=== PATIENT | male | born 1975 | race Caucasian/White ===

== ENCOUNTER → 2018-03-05 07:38 | Outpatient (CLI) | payer OTHER, SELFPAY ==
--- NOTE | 2018-03-05 | DI.RAD.S_ITS ---
PROCEDURE: FL ARTHROGRAM SHOULDER LT INDICATIONS: STRAIN OF MUSCLE AND TENDON OF THE ROTATOR CUFF LEFT SHOULDER TECHNIQUE: The indications, alternatives, benefits, risks, and complications of the procedure were explained to the patient. Written informed consent was obtained and placed in the chart. The shoulder was examined fluoroscopically and a site for needle placement chosen for entry into the glenohumeral joint from an anterior approach. The skin was prepped and draped in a sterile fashion, and 1% lidocaine infiltrated from skin down to joint capsule. A spinal needle was inserted into the glenohumeral joint, and a small amount of iodinated contrast media injected to confirm intra-articular placement of the needle tip. This was followed by approximately 12 mL dilute solution of a gadolinium containing MR contrast agent. The needle was removed and a dressing was applied. The patient was given postprocedural instructions and sent to the MR suite for MR imaging. FINDINGS: A single fluoroscopic spot image demonstrates intra-articular location of injected iodinated contrast. IMPRESSION: Successful fluoroscopically guided administration of dilute Gadolinium solution into the shoulder joint for MR arthrogram. Dictated by: Santiago De La Torre M.D. on 03/05/2018 at 10:10 Approved by: Santiago De La Torre M.D. on 03/05/2018 at 10:11
--- NOTE | 2018-03-05 | DI.MRI.S_ITS ---
PROCEDURE: MR SHOULDER LT W CON INDICATIONS: STRAIN OF MUSCLE AND TENDON OF THE ROTATOR CUFF LE TECHNIQUE: After the administration of 12 mL of dilute intra-articular Gadolinium contrast, oblique coronal T1 and T2 spin echo with fat saturation, oblique sagittal T1 spin echo with and without fat saturation, oblique sagittal T2 fast spin echo with fat saturation, axial T1 spin echo with fat saturation through the shoulder. COMPARISON: [facility], MR, SHOULDER WITH CONTRAST, 02/11/2017, 13:59. FINDINGS: Image quality: Diagnostic. Rotator cuff: There is no full-thickness or high-grade partial-thickness tear of the rotator cuff. There is low moderate grade articular surface partial thickness tearing of the distal supraspinatus tendon with associated tendinopathy. Infraspinatus, subscapularis, and teres minor tendons are intact. There is no significant atrophy of the rotator cuff muscles. Bones and bursae: There is no acute fracture, dislocation, suspicious osseous lesion, or evidence of avascular necrosis. There mild/early degenerative changes of the glenohumeral joint. There are mild/moderate degenerative changes of the acromial clavicular joint. There is adequate distention of the glenohumeral joint with the injected contrast. No definite loose intra-articular joint bodies are appreciated. None of the injected contrast extends into the subacromial subdeltoid bursa to suggest a nonvisualized full-thickness tear of the rotator cuff. No significant fluid is seen within the subacromial subdeltoid bursa. Capsule and soft tissues: There is a near circumferential tear of the labrum that extends from approximately the 3 o'clock position (posterior) to the 12 o'clock position (superior) and along the entire length of the anterior labrum to at least the 6 o'clock position. There may be extension of this tear into the posteroinferior aspect of the labrum to approximately the 5 o'clock position. No detached labral fragments are identified. The long head of the biceps tendon is normally positioned within the bicipital groove. There is increased signal identified involving the intra-articular portion of the proximal biceps tendon. No significant tearing is identified. The superior, middle, and inferior glenohumeral ligaments appear intact. IMPRESSION: 1. Low to moderate grade articular surface partial thickness tearing of the distal supraspinatus tendon with corresponding mild tendinopathy. 2. Moderate to large near circumferential tearing of the labrum. No detached labral fragments are evident. 3. Probable tendinopathy involving the intra-articular portion of the biceps tendon. 4. Mild to moderate degenerative changes of the glenohumeral and acromioclavicular joints. Dictated by: Ovidio Gleason M.D. on 03/05/2018 at 9:02 Approved by: Ovidio Gleason M.D. on 03/05/2018 at 9:10
== END ==
PROVIDERS: Family Provider Student in an Organized Health Care Education/Training Program; PCP Student in an Organized Health Care Education/Training Program; Visit Provider Student in an Organized Health Care Education/Training Program
DX: S46.012A Strain of muscle(s) and tendon(s) of the rotator cuff of left shoulder, initial encounter (principal); S43.492A Other sprain of left shoulder joint, initial encounter; M19.012 Primary osteoarthritis, left shoulder
CPT/HCPCS: 73040; 73222; 77002

== ENCOUNTER 2018-05-05 08:57 | Day surgery (SDC) | payer OTHER, SELFPAY ==
[2018-04-23 12:01] VITALS: BMI 32.1
[2018-05-05] VITALS (7 sets, daily range): BP systolic 115–131; BP diastolic 70–91; PULSE 66–91; RESP 8–20; TEMP 36.3–36.6; O2SAT 90–99; BMI 33.2
[2018-05-05] MEDS: LACTATED RINGERS 1,000 ML 42 ML IV ×2 (09:33→13:03)
--- NOTE | 2018-05-05 10:20 | PM.PREOP ---
Pre-operative Note Interval Note Pre-op Check: Yes History & Physical Reviewed by Physician and Yes Exam Performed Changes: No
[2018-05-05] MEDS: MIDAZOLAM 2 MG/2 ML VIAL IV (10:23)
--- NOTE | 2018-05-05 10:37 | SUR.PREOP ---
Block start time [1023] . Monitoring initiated and maintained throughout procedure. Oxygen and medications given per anesthesiologist instructions. Patient remained stable throughout procedure, no adverse reactions noted. Block end time 1029 [].
--- NOTE | 2018-05-05 10:38 | SUR.OPER ---
Lateral on padded OR bed with miranda bag positioner, head on pillow, gel axillary roll in place, bottom leg bent with gel pad under knee to foot, upper leg straight and supported with pillows. Operative arm secured in shoulder positioning suspension device. non-operative arm secured on padded arm board. Safety belt at hip, tape over blanket securing lower legs.
[2018-05-05] MEDS: CEFTRIAXONE 2 GM/50 ML FROZ.PIGGY IV (11:00)
[2018-05-05] MEDS: SODIUM CHLORIDE IRRIG SOLUTION 3,000 ML, EPINEPHrine 1 MG IRR ×2 (12:02→12:42)
--- NOTE | 2018-05-05 14:01 | P.PCN_ITS ---
Procedures Date/Time Date of procedure: 05/05/18 Time of procedure: 10:31 Nerve Block Time out performed: Yes Local anesthetic used: other (15mL 0.5 opivacaine, 5mL 2* idocaine) Location of anesthetic used: interscalene Amount of anesthesia used (mL): 20 Nerve blocks: brachial plexus (interscalene) Procedure successful: Yes Patient tolerated procedure: well Complications: none Additional comments: Brachial plexus nerve block for post operative pain management. Risks and benefits discussed, including bleeding, infection, intravascular injection, nerve damage, block failure. Standard ASA monitors, NC O2. Pt supine. Chloroprep site preparation, sterile technique. Brachial plexus identified with US guidance, traced from supraclavicular to interscalene. 1mL 2% lidocaine skin wheal. 22g x 50mm Pajunk advanced with in- plane US guidance to brachial plexus. Negative aspiration. LA injected with intermittent negative aspiration. Good LA spread noted on US. No pain, no paraesthesia. Pt tolerated procedure well. Vital signs stable.
[2018-05-05] MEDS: BUPIVACAINE 0.25% (PF) VIAL 30 ML INJ (14:04)
--- NOTE | 2018-05-05 14:41 | P.OP_ITS ---
Operative Date/Time/Diagnoses Date of procedure: 05/05/18 Time of procedure: 12:00 Pre-op diagnosis: Left rotator cuff tear Left biceps tendinitis Left acromioclavicular joint arthritis Post-op diagnosis: same Procedure & Clinicians Procedure: Left shoulder arthroscopic rotator cuff debridement Left shoulder subacromial decompression Left shoulder open biceps tenodesis Left shoulder open distal clavicle excision Same procedure as scheduled: Yes Indications: 43-year-old male with the above diagnoses. He failed a long course of non operative treatment and responded temporarily to injections in the AC joint in the subacromial space. He additionally had similar symptoms in the right shoulder and did very well after a similar procedure. The risks, benefits, alternatives were discussed. Risks include pain, bleeding, infection , damage to nearby structures, lack of symptom relief, need for further procedures Aminah pop eye deformity, progression of his rotator cuff tear, clavicle instability. He signed a written consent form Surgeon: Patricio Gayle Medical Device Assembler: Fernando Hart Click Yes if Unassisted: No Anesthesia Type: General and Local Operative Notes Findings: Diagnostic arthroscopy shows grade 1 laxity posteriorly but nothing inferior or anterior. Range of motion was full. There is popping in the AC joint with range of motion. Diagnostic arthroscopy: Grade 2 slap tear and injury to the biceps sling both medially and laterally. The biceps tendon was taken. Subscapularis was intact and mild fraying that was not structural. There was slight cracking throughout the periphery of the labrum but no unstable tears. There was a 25% articular sided tear of the leading edge of the supraspinatus this was debrided. Subacromial space showed bursitis that was resected. No haggle lesion. Humeral head and glenoid cartilage was intact. Closure Type: primary Implants & Drains: Arthrex fiber tack loaded with a single tape Estimated Blood Loss (mL): 25 Blood products transfused: none Procedure in detail: The patient was met in the hold area on the day of surgery. Operative site was signed. Consent was verified. He desired to proceed. He was brought to the operating room and surrendered anesthesia. Once general anesthesia been obtained was placed in lateral position with the left arm up. An axillary roll was placed. All bony prominences were well padded. The beanbag was used to hold this position. He was then secured with tape and strap. Examination under anesthesia was then performed. He was then prepped and draped in the standard fashion. He was placed in balanced suspension with 10 lb. A surgical time-out was held to confirm the patient procedure, identity , allergies, images, antibiotics. All were in agreement we proceeded. A standard diagnostic arthroscopy was performed utilizing a posterior and anterosuperior portal. The anterosuperior portal was placed under direct visualization. The findings of the diagnostic arthroscopy can be found above. I then took a straight biter and released the biceps tendon from the labral junction and debrided the stump with the shaver. I then went up to the rotator cuff and debrided back the unstable portions and measured the footprint that had lifted up being less than 5 mm. I then performed a debridement of the rotator interval to better assess the subscapularis insertion and found to be inserting very nicely. The medial sling excess tissue was also debrided. Satisfied with the work in the joint I then moved up into the subacromial space by placing a switching stick from the posterior portal out through the anterior portal site just under the acromion. I then placed a cannula anteriorly with a sucker shaver and the camera posteriorly. I then sequentially performed a bursectomy with a sucker shaver and the radiofrequency ablator ablation Wand. I took care to take the bursa down the lateral and anterior. Hemostasis was obtained with electrocautery. Identified the underside of the acromion and removed all scar tissue from that location. I probed the rotator cuff and found there to be no tears on the bursal side. Satisfied with this and removed all instruments from the shoulder. I then identified the Monreal major tendon near the axilla and created a 4 cm incision. Blunt dissection was carried down and the correct interval and isolated the long head of biceps tendon. It was then retrieved from the wound. A Diaz elevator was then used to the abrade the intertubercular groove bone and freed from all synovial tissue. Satisfied with this I placed a suture tack high within the groove centrally. I measured 2 cm from the musculotendinous junction and took 1 limb and brought it to the capsular and whipstitched from that point down to the muscle and then back up. I then took the other limb and passed at a single time through the tendon. Excess tendon was then cut and I reduced the tendon down to the bone. I then tied the 7 half hitches alternating post to secure the tendon. It was found to have excellent tension in a good position. I then proceeded to distal clavicle excision utilized a longitudinal 4 cm incision. Electrocautery was used to obtain hemostasis and brought that down to the fascial layer. I cleared full-thickness skin flaps and then made a longitudinal capsular incision directly over the joint. I freed the joint capsule from the bony attachments and placed a Hohmann anterior and posterior to the distal clavicle. I then measured 1 cm total resection and took it parallel to the acromion. I then placed my finger in the gap and I was able to fully bring the arm across the body without impacting the bony ends together. Satisfied with this I irrigated all wounds copiously and closed in layered fashion. The capsule was closed with 0 Vicryl the dermis with 2 O Vicryl and the skin with a 3 0 nylon for the distal clavicle excision. For the biceps tendon I placed 2 0 Vicryl in the dermis and a running Monocryl in the skin. The portals were closed with buried Monocryl. I then placed Steri-Strips and put in 30 cc of 0.25% Marcaine plain around the incisions. A sterile dressing was then applied. He was awakened and put into a sling and transferred to recovery room. Complications: none Condition: stable Disposition: same day surgery Plan for aftercare: No active flexion of the biceps for 6 weeks No weight-bearing through the shoulder for 6 weeks Progressive biceps rehab after 6 weeks X-ray of left shoulder at 2 week follow-up
--- NOTE | 2018-05-05 15:31 | SUR.PHASEII ---
o2 sat 90-92%RA, patient encouraged to use CPAP today while resting, pt and spouse agreeable. Pt ambulated to the bathroom, sba. Assisted in bathroom by spouse.
--- NOTE | 2018-05-05 15:32 | SUR.PHASEII ---
Sling/brace positioned for comfort
== END 2018-05-05 15:20 | disposition home or self-care (01) ==
PROVIDERS: Family Provider Student in an Organized Health Care Education/Training Program; PCP Student in an Organized Health Care Education/Training Program; Visit Provider Orthopaedic Surgery
PROC: (CPT 29827; principal; 2018-05-05 10:15)
PROC: (CPT 24341; 2018-05-05 10:15)
PROC: (CPT 23120; 2018-05-05 10:15)
DX: M75.100 Unspecified rotator cuff tear or rupture of unspecified shoulder, not specified as traumatic (principal); M75.22 Bicipital tendinitis, left shoulder; S43.432A Superior glenoid labrum lesion of left shoulder, initial encounter; M19.012 Primary osteoarthritis, left shoulder; G47.33 Obstructive sleep apnea (adult) (pediatric); G89.18 Other acute postprocedural pain
CPT/HCPCS: 23430; 23120; 29826; 29822; 64415; 64450; J0171; J0696; J1100; J2250; J2405; J2704; J3010

== ENCOUNTER 2019-08-23 01:47 | Emergency (ER) | payer OTHER, SELFPAY ==
[2019-08-23 01:50] VITALS: BP 141/91; PULSE 58; RESP 16; TEMP 36.7; O2SAT 99; BMI 37.3
--- NOTE | 2019-08-23 04:27 | ED_ITS ---
HPI - Dental/Oral General Chief complaint: Dental/Oral Stated complaint: can't open jaw wide, pain left side Time Seen by Provider: 08/23/19 04:27 Source: patient Mode of arrival: Ambulatory Limitations: no limitations History of Present Illness HPI Narrative: The patient has bilateral TMJ. He developed locked jaw earlier tonight, been unable to close his mouth be on detention. He was talking. This is never happened before he has primary left TMJ pain. He has no dental pain. He has no facial swelling. He is having no difficulty breathing. He has had no trauma. Related Data Home Medications Medication Instructions Recorded Confirmed No Known Home Medications 05/05/18 05/05/18 Allergies Allergy/AdvReac Type Severity Reaction Status Date / Time No Known Drug Allergies Allergy Verified 05/05/18 09:23 Review of Systems Review of Systems ROS Unobtainable: All systems reviewed & are unremarkable except as noted in HPI and below ENT Ears, Nose, Mouth, and Throat: Reports as per HPI, Denies lip swelling, Denies mouth lesions and Reports mouth pain Allergic/Immunologic Allergic/Immunologic: Denies lip swelling Patient History Medical History Arthritis (Acute) Biceps tendonitis on left (Acute) Bilateral shoulder pain (Acute) Impaired vision (Acute) Left rotator cuff tear (Acute) Plantar fasciitis (Acute) Right knee pain (Acute) Sleep apnea (Acute) Surgical History History of shoulder surgery (Acute) Social History household members: spouse and children Smoking Status: Former smoker alcohol intake: never Smoking Status: Former smoker Exam Initial Vital Signs Initial Vital Signs: Vital Signs Temperature 98.0 F 08/23/19 01:50 Pulse Rate 58 L 08/23/19 01:50 Respiratory Rate 16 08/23/19 01:50 Blood Pressure 141/91 H 08/23/19 01:50 Pulse Oximetry 99 08/23/19 01:50 Const General: cooperative and well developed Nutritional Appearance: well nourished [facility] Head: normal to inspection, normocephalic and atraumatic Nose: TMJ tender (Bilateral) and TMJ clicking (Bilateral) Face and sinus: normal facial exam and sinuses nontender Mouth: oral mucosae normal and lip normal Teeth and gingiva: dentition normal Throat: posterior oropharynx normal Neck Neck: full ROM, supple and No lymphadenopathy Course Course Course Narrative: The patient was able to reduce the TMJ dislocation himself, prior to my arrival in the room. I examined him, he has significant tenderness and laxity over both TMJ points. I suggested he follow-up with his dentist. Vital Signs Vital signs: Vital Signs - 8 hr 08/23/19 01:50 Temperature 98.0 F Pulse Rate 58 L Respiratory Rate 16 Blood Pressure 141/91 H Pulse Oximetry 99 Discharge Plan Departure Patient Disposition: Home Clinical Impression: TMJ (dislocation of temporomandibular joint) Qualifiers: Encounter type: initial encounter Qualified Code(s): S03.00XA - Dislocation of jaw, unspecified side, initial encounter Activity Restrictions/Additional Instructions: If you experience locked dog and, consider doing the motions that I demonstrated. You should also consider following up with your dentist for management of the TMJ. Return the ER as needed. Prescriptions: No Action No Known Home Medications RF: 0 Referrals: Marilee De La Torre MD [Primary Care Provider] -
== END 2019-08-23 04:31 | disposition home or self-care (01) ==
PROVIDERS: Emergency Provider Emergency Medicine; Family Provider Student in an Organized Health Care Education/Training Program; PCP Student in an Organized Health Care Education/Training Program
DX: S03.03XA Dislocation of jaw, bilateral, initial encounter (principal)
CPT/HCPCS: 99281

== ENCOUNTER → 2020-04-10 15:07 | Outpatient (CLI) | payer OTHER, SELFPAY ==
[2020-04-10 16:48] LABS: Alanine Aminotransferase 45 IU/L (<50); Albumin 4.3 g/dL (3.5-5.0); Albumin Globulin Ratio 1.2 (1.0-2.8); Alkaline Phosphatase 69 U/L (38-126); Aspartate Aminotransferase 31 IU/L (17-59); Cholesterol 202 mg/dL (140-199); Globulin 3.6 g/dL (1.7-4.1); HDL Cholesterol 41 mg/dL (40-60); HEMOLYSIS < 15 (0-50); LDL Cholesterol Calculated 130 mg/dL (<100); Total Protein 7.9 g/dL (6.3-8.2); Triglycerides 153 mg/dL (35-150)
[2020-04-10 16:50] LABS: Hemoglobin A1C% w Est Avg Glu 5.7 % (4.0-6.0)
== END ==
PROVIDERS: Family Provider Student in an Organized Health Care Education/Training Program; PCP Student in an Organized Health Care Education/Training Program; Referring Provider Student in an Organized Health Care Education/Training Program; Visit Provider Student in an Organized Health Care Education/Training Program
DX: E78.5 Hyperlipidemia, unspecified (principal); Z79.899 Other long term (current) drug therapy; E66.9 Obesity, unspecified; R73.9 Hyperglycemia, unspecified
CPT/HCPCS: 36415; 80061; 80076; 83036

== ENCOUNTER 2021-03-27 08:39 | Emergency (ER) | payer OTHER, SELFPAY ==
[2021-03-27 08:46] VITALS: BP 144/84; PULSE 66; RESP 18; TEMP 37.1; O2SAT 98; BMI 43.0
--- NOTE | 2021-03-27 09:20 | ED.NEUROSD ---
HPI - Neuro Symptoms/Deficit General Chief Complaint: Neuro Symptoms/Deficit Stated Complaint: Left side of face drooping this am Time Seen by Provider: 03/27/21 08:44 History of Present Illness HPI Narrative: 46-year-old gentleman with a history of hyperlipidemia, depression and anxiety presents with right facial droop that he noticed upon awakening this morning. Has no other stroke associated symptoms, no headache no extremity weakness or numbness. He has noticed that his eye is slightly dry and he had some trouble dribbling from the right side of his mouth fall he was drinking his coffee this morning. Reports no recent fevers, cough, chills, abdominal pain, vomiting, nausea, palpitations, chest pain. On Anticoagulants: No Related Data Previous Rx's Medication Instructions Recorded atorvastatin 40 mg tablet 40 mg PO DAILY #90 tab 05/04/20 prednisone 20 mg tablet 60 mg PO DAILY #21 tab 03/27/21 valacyclovir 1 gram tablet 1,000 mg PO Q8H #21 tab 03/27/21 Allergies Allergy/AdvReac Type Severity Reaction Status Date / Time No Known Drug Allergies Allergy Verified 04/10/20 14:35 Review of Systems Review of Systems Narrative: Remainder of complete review of systems is otherwise unremarkable except for that included in the HPI. Hematologic/Lymphatic On Anticoagulants: No Patient History Medical History Arthritis Olvera's palsy Biceps tendonitis on left Bilateral shoulder pain Impaired vision Left rotator cuff tear Plantar fasciitis Right knee pain Sleep apnea Surgical History History of shoulder surgery Social History household members: spouse and children Smoking Status: Former smoker alcohol intake: never Smoking Status: Former smoker Exam Narrative Exam Narrative: General: Healthy appearing, in no acute distress. Able to give a complete and coherent history. Well-nourished well-developed HEENT: Moist mucous membranes, normal sclera with reactive pupils, Respiratory: Lungs are clear to auscultation, no wheezing no rales no rhonchi. Full and symmetrical air movement Cardiac: Regular rate and rhythm no murmurs no bruits Abdomen: Soft, nontender, good bowel tones, no flank pain Skin: Warm and dry, no rashes Neurologic: Right-sided facial weakness with difficulty completely closing the right eyelid, flattened nasal labial fold. No sensory abnormalities. Otherwise he is neurologically intact without any peripheral involvement. 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 He went to bed fine last night and today noticed facial weakness. No other neurologic involvement to suggest stroke. Will treat him with 7 days of prednisone at 60 mg as well as 7 days of valacyclovir 1 g 3 times a day. Reviewed with him anticipated course of disease and possible complications. I asked that he follow-up with his primary care physician in about a week. 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 This is not a stroke For this, the recommendation is high doses of steroids for 1 week. And antiviral medication 3 times a day for 1 week Use of artificial tears in your right eye and you may even need to use some light tape to hold your eyelid closed wall your sleeping at night This has a very good prognosis with expected complete recovery however recovery can take up to a couple of months. Because you of come in so early in the course of the disease, you may notice the symptoms worsen over the next 1-2 days. Please follow-up with Dr. York in about a week to make sure that all of your questions are answered and that you are doing well. I wish you the best Prescriptions: New prednisone 20 mg tablet 60 mg PO DAILY Qty: 21 RF: 0 valacyclovir 1 gram tablet 1,000 mg PO Q8H Qty: 21 RF: 0 No Action atorvastatin 40 mg tablet 40 mg PO DAILY Qty: 90 RF: 3 Referrals: Lokesh Vasquez MD [Primary Care Provider] -
== END 2021-03-27 09:29 | disposition home or self-care (01) ==
PROVIDERS: Emergency Provider Emergency Medicine; Family Provider Student in an Organized Health Care Education/Training Program; PCP Student in an Organized Health Care Education/Training Program
DX: G51.0 Bell's palsy (principal)
CPT/HCPCS: 99281

== ENCOUNTER → 2021-09-05 14:41 | Outpatient (CLI) | payer OTHER, SELFPAY ==
[2021-09-05 17:27] LABS: Hemoglobin A1C% w Est Avg Glu 5.7 % (4.0-6.0)
[2021-09-05 17:58] LABS: Prostate Specific Antigen Scrn 1.29 ng/mL (0.1-4.0)
== END ==
PROVIDERS: Family Provider Student in an Organized Health Care Education/Training Program; PCP Student in an Organized Health Care Education/Training Program; Referring Provider Student in an Organized Health Care Education/Training Program; Visit Provider Student in an Organized Health Care Education/Training Program
DX: E66.9 Obesity, unspecified (principal); R73.9 Hyperglycemia, unspecified; Z12.5 Encounter for screening for malignant neoplasm of prostate; Z80.42 Family history of malignant neoplasm of prostate
CPT/HCPCS: 36415; 83036; G0103

== ENCOUNTER → 2021-12-05 13:14 | Outpatient (CLI) | payer OTHER, SELFPAY ==
--- NOTE | 2021-12-05 13:16 | DI.CT.S_ITS ---
PROCEDURE: CT ABDOMEN PELVIS WO CON INDICATIONS: Right lower quadrant pain TECHNIQUE: Noncontrast 5 mm thick sections acquired from the diaphragms to the symphysis. 5 mm coronal and sagittal reformats were then performed. For radiation dose reduction, the following was used: automated exposure control, adjustment of mA and/or kV according to patient size. COMPARISON: None. FINDINGS: Image quality: Excellent. ABDOMEN: Lung bases: Lung bases are clear. Heart size is normal. Solid organs: Liver is normal in size. Gallbladder is normal . Pancreas is normal in contours. Spleen is normal in size. No adrenal nodules. Kidneys are normal in size, without hydronephrosis or nephrolithiasis. There is a calcification in the right renal hilum, probably a vascular calcification. Peritoneum and bowel: Unenhanced bowel loops demonstrate normal wall thickness and caliber. No free fluid or air. The appendix is not visualized, however there is no CT evidence of acute appendicitis. Nodes and vessels: No retroperitoneal or mesenteric adenopathy by size criteria. Aorta and inferior vena cava are normal in caliber. Miscellaneous: No ventral hernias. PELVIS: Genitourinary: Bladder wall thickness is normal. Miscellaneous: No inguinal hernias or adenopathy. Bones: No suspicious bony lesions. No vertebral body compression fractures. IMPRESSION: 1. No acute abdominal or pelvic abnormality. 2. The appendix is not identified, however there is no CT evidence of acute appendicitis. Dictated by: Aayush Huerta M.D. on 12/05/2021 at 15:10 Approved by: Aayush Huerta M.D. on 12/05/2021 at 15:16
== END ==
PROVIDERS: Family Provider Student in an Organized Health Care Education/Training Program; PCP Student in an Organized Health Care Education/Training Program; Referring Provider Student in an Organized Health Care Education/Training Program; Visit Provider Student in an Organized Health Care Education/Training Program
DX: N50.82 Scrotal pain (principal); R10.31 Right lower quadrant pain
CPT/HCPCS: 74176

== ENCOUNTER → 2022-01-13 12:42 | Outpatient (CLI) | payer OTHER, SELFPAY ==
[2022-01-13 14:08] LABS: COVID19 -Nasal RAPID Negative (Negative)
== END ==
PROVIDERS: Family Provider Student in an Organized Health Care Education/Training Program; PCP Student in an Organized Health Care Education/Training Program; Visit Provider Surgery
DX: Z20.822 Contact with and (suspected) exposure to COVID-19 (principal); Z01.812 Encounter for preprocedural laboratory examination
CPT/HCPCS: 87635; C9803

== ENCOUNTER 2022-01-14 09:41 | Day surgery (SDC) | payer OTHER, SELFPAY ==
[2022-01-14] VITALS (7 sets, daily range): BP systolic 135–175; BP diastolic 77–103; PULSE 76–90; RESP 13–25; TEMP 36.2–37.1; O2SAT 91–96; BMI 41.8
--- NOTE | 2022-01-14 | PATH_ITS ---
[facility] Accession Number: [id number] . 01 Material submitted: . colon - SIGMOID COLON POLYP . 01 Diagnosis: Sigmoid Colon, Polyp, Biopsy: Hyperplastic polyp. [facility] [place] 01/17/2022 1333 Local . 01 Electronically signed: . Kaitlin Thacker MD, Pathologist NPI- [id number] . 01 Gross description: . SIGMOID COLON POLYP: Received in formalin is 1 fragment(s) of mora, soft tissue measuring 0.2 x 0.2 x 0.2 cm submitted entirely in 1 cassette(s) /[facility] 01/15/2022 2229 Local . 01 Pathologist provided ICD-10: D12.5 . 01 CPT . 884183 Performed at: 01 [facility] [address] [place] [address] [id number] MD Pedro Serrato MD Phone: [phone]
[2022-01-14] MEDS: LACTATED RINGERS 1,000 ML 200 ML IV (10:06)
--- NOTE | 2022-01-14 10:52 | PM.HP.1 ---
History of Present Illness History of Present Illness Date Patient Seen: 01/14/22 Time Patient Seen: 10:52 Chief complaint: SDC Narrative: The patient presents for colorectal screening. They have never had any previous examination for such. He has recently been having some right lower quadrant/flank pain CT abdomen pelvis was unremarkable. No blood per rectum no unintentional loss. Family history significant for father who had colon cancer. Patient History Medical History Arthritis Biceps tendonitis on left Bilateral shoulder pain Impaired vision Left rotator cuff tear Plantar fasciitis Right knee pain Sleep apnea Surgical History History of shoulder surgery Family & Social History Social History: household members spouse,children Tobacco & Substance use: Smoking Status Former smoker alcohol intake never Substance Use Type does not use Meds Home Medications and Allergies Home Medications Medication Instructions Recorded Confirmed Type atorvastatin 40 mg tablet 40 mg PO DAILY #90 tabs 05/04/20 01/14/22 Rx paroxetine HCl 40 mg tablet 40 mg PO DAILY 04/03/21 01/14/22 History sodium,potassium,mag sulfates 17.5 See Rx Instructions PO .COMPLEX 12/30/21 Rx gram-3.13 gram-1.6 gram oral soln #354 mL (Suprep Bowel Prep Kit) Allergies Allergy/AdvReac Type Severity Reaction Status Date / Time No Known Drug Allergies Allergy Verified 01/14/22 10:01 Exam Vital Signs (past 8 hours): - 01/14/22 09:56 Temperature 97.3 F L Pulse Rate 76 Respiratory Rate 15 Blood Pressure 153/83 H Pulse Oximetry 96 Oxygen Delivery Method Room Air Oxygen Delivery Method Room Air Narrative Exam Narrative: General adult male alert oriented no acute distress Abdomen soft nontender nondistended Assessment & Plan Assessment & Plan narrative: The patient requires colorectal screening and colonoscopy is recommended. Technical details were discussed. Risks, benefits, alternatives explained. Risks including but not limited to myocardial infarction, aspiration, bleeding, pain, missed lesion, incomplete examination, need for further radiographic studies, colonic perforation, and need for major abdominal surgery were discussed. All questions were answered to their satisfaction, and they are in agreement with this plan. Time Spent With Patient Critical Care time: I spent a total of [] minutes of critical care time on this patient's care today; this time is exclusive of procedural time.
--- NOTE | 2022-01-14 11:10 | SUR.OPER ---
9 mg of Versed and 100 Fentanyl given per protocol. Patient wide awake, alert and reports no response to medications. IV to right forearm tight flush without blood return. Upon further investigation patient reports discomfrot to site. New IV to right AC initated by this RN with good blood return and easy flush. IVF infusing without difficulty. Patient give a new dose of 5 mg versed and 100 fentanyl with almost immediate effect. Dr. Pruitt aware and at bedside.
[2022-01-14] MEDS: fentaNYL 250 MCG/5 ML INJ IV (11:16)
[2022-01-14] MEDS: MIDAZOLAM 5 MG/5 ML VIAL 16 MG IV (11:16)
--- NOTE | 2022-01-14 11:24 | PM.OP.COLON ---
Operative Date/Time/Diagnoses Date of procedure: 01/14/22 Time of procedure: 11:24 Pre-op diagnosis: Family history of colon cancer Post-op diagnosis: same Procedure & Clinicians Study performed: Colonoscopy and polypectomy Same procedure as scheduled: Yes Indications: Family history of colon cancer Surgeon: Joni Pruitt Procedure Notes Procedure in detail: Medications: Conscious sedation using 7 mg IV midazolam and 150 mcg IV of fentanyl The history and physical was performed/updated and the patient is ASA class is 2. The procedure was discussed in detail with the patient. Potential risks complications including infection, bleeding, missed diagnosis, perforation, need for surgery, and were explained. Their questions were answered and informed consent was obtained. Patient was brought to the procedure room and placed standard monitoring equipment. The patient's vital signs were monitored continuously throughout the entire procedure. Prior to starting time-out was performed. The patient was placed in the left lateral recumbent position. Procedural sedation was administered. Examination began with a thorough inspection of the perianal area there was no evidence of fissures, fistulae, external hemorrhoids or cutaneous malignancy. The colonoscopy scope was then placed into the anal canal and was advanced to the cecum, which was identified by the ileocecal valve, the appendiceal orifice and the confluence of the taenia. The scope was then slowly withdrawn examining colon thoroughly in all directions, irrigating it of any residual stool. FINDINGS 1. Sigmoid colon-flat 5 mm polyp removed with Jumbo forceps 2. Internal hemorrhoids The patient tolerated the procedure well. They will be discharged once criteria are met. The prep was of good/excellent quality. The withdrawl time was 6 minutes. The sedation time was 13 minutes. Specimen(s): other (Sigmoid colon polyp) Complications: none Impression: Colonic polyp Post-procedure Recommendations: Colonoscopy in 5 years Disposition: same day surgery
--- NOTE | 2022-01-14 12:02 | SUR.PHASEII ---
During procedure, Pt recieved 9 mg Versed and 150 mcg fentanyl without effect, IV site assumed to be infiltrated. Second IV placed 9 mg Versed and 100 MCG fentanyl administered. RN wary of delayed effect of initial dosage. Pharmacy contacted, recommends keeping patient for 2 hours.
== END 2022-01-14 13:33 | disposition home or self-care (01) ==
PROVIDERS: Family Provider Student in an Organized Health Care Education/Training Program; PCP Student in an Organized Health Care Education/Training Program; Referring Provider Surgery; Visit Provider Surgery
PROC: 0DJD8ZZ Inspection of Lower Intestinal Tract, Via Natural or Artificial Opening Endoscopic (ICD-10-PCS; CPT 45378; principal; 2022-01-14 10:30)
DX: Z12.11 Encounter for screening for malignant neoplasm of colon (principal); Z80.0 Family history of malignant neoplasm of digestive organs; K64.8 Other hemorrhoids; K63.5 Polyp of colon
CPT/HCPCS: 45380; 99152; J2250; J3010

== ENCOUNTER 2022-08-06 12:29 | Emergency (ER) | payer OTHER, SELFPAY ==
[2022-08-06 12:46] VITALS: BP 156/88; PULSE 72; RESP 16; TEMP 36.4; O2SAT 99; BMI 29.1
--- NOTE | 2022-08-06 13:08 | DI.US.S_ITS ---
PROCEDURE: US ABDOMEN LIMITED INDICATIONS: RIGHT UPPER QUADRANT PAIN TECHNIQUE: Real-time focused scanning was performed of the abdomen, with image documentation. COMPARISON: [facility], CT, CT ABDOMEN PELVIS WO CON, 12/05/2021, 13:18. FINDINGS: This study is limited by body habitus and bowel gas. The liver demonstrates normal size. The liver demonstrates generalized moderately increased echogenicity. The liver demonstrates a mildly heterogeneous appearance. This decreases ultrasound sensitivity for detection of hepatic masses. Likely fatty sparing can be seen adjacent to the gallbladder that measures a 3.4 cm. The main portal vein demonstrates normal size and demonstrates normal appearing, hepatopetal flow. No findings of gallstones or sludge are seen. The gallbladder wall is not thickened, measuring 3 mm or less. No specific pericholecystic fluid is seen. The sonographic Blanc sign is negative. There is no biliary dilatation, the common bile duct measures 4-5 mm. The pancreas is not well seen. The right kidney demonstrates normal size. The proximal ureter is dilated at 1.5 cm. There is a 1 cm stone seen within the proximal ureter. There is mild pelviectasis seen on the right. IMPRESSION: 1 cm stone seen within the proximal right ureter. Please consider a follow-up noncontrast CT for further evaluation. The liver demonstrates increased echogenicity. This finding is nonspecific, yet it is most commonly attributed to fatty infiltration. The gallbladder demonstrates a normal sonographic appearance. No biliary dilatation is seen. Note: Concordant preliminary findings given by the hearing dog trainer upon the completion of the examination to Brigida Juliana at 1:40 p.m. on August 06, 2022. Dictated by: Garcia Darby M.D. on 08/06/2022 at 12:54 Approved by: Garcia Darby M.D. on 08/06/2022 at 12:56
--- NOTE | 2022-08-06 13:15 | ED_ITS ---
HPI - Abdominal Pain <NANCY Philip - Last Filed: 08/06/22 15:15> General Chief Complaint: Abdominal Pain Stated Complaint: Back pain, Poss gallbladder problems Time Seen by Provider: 08/06/22 13:08 Source: patient Mode of arrival: Ambulatory History of Present Illness HPI narrative: This is a 47-year-old male with history of ANABELLA, obesity and hyperlipidemia who presents to the emergency department with concerns for gallbladder problems. He has had right upper quadrant pain and right flank pain intermittently over the last year and states that most recently it has worsened with episode of emesis this morning, nausea and emesis recently. He denies recent fever, chills, diaphoresis, chest pain, or radiation to his back. His primary care provider is Dr. York and he has talked about this in the past with him. States that his pain was worse today so he he was concerned it was more serious this time. He denies recent illness, denies any urinary changes, denies any stool changes or other abdominal pain. Denies any blood in his emesis. Related Data Home Medications Medication Instructions Recorded Confirmed paroxetine HCl 40 mg tablet 40 mg PO DAILY 04/03/21 08/04/22 Previous Rx's Medication Instructions Recorded atorvastatin 40 mg tablet 40 mg PO DAILY #90 tabs 05/04/20 hydrocodone 5 mg-acetaminophen 325 1 tab PO TID PRN pain #14 tabs 08/06/22 mg tablet ketorolac 10 mg tablet 10 mg PO Q8H PRN pain #20 tabs 08/06/22 ondansetron 4 mg disintegrating 4 mg PO Q8H PRN nausea and 08/06/22 tablet vomiting #14 tabs polyethylene glycol 3350 17 17 g PO DAILY PRN constipation, 08/06/22 gram/dose oral powder (Miralax) for soft stool #238 grams Allergies Allergy/AdvReac Type Severity Reaction Status Date / Time No Known Drug Allergies Allergy Verified 08/06/22 12:46 Review of Systems <NANCY Philip - Last Filed: 08/06/22 15:15> Review of Systems ROS Unobtainable: All systems reviewed & are unremarkable except as noted in HPI and below Patient History <NANCY Philip - Last Filed: 08/06/22 15:15> Medical History Arthritis Biceps tendonitis on left Bilateral shoulder pain Impaired vision Left rotator cuff tear Plantar fasciitis Right knee pain Sleep apnea Surgical History History of shoulder surgery Social History household members: spouse and children Smoking Status: Former smoker alcohol intake: never Smoking Status: Former smoker Substance Use Type: does not use Exam <NANCY Philip - Last Filed: 08/06/22 15:15> Narrative Exam Narrative: Reviewed vitals signs and nursing notes. General: cooperative, comfortable, in no acute distress, well groomed HEENT: symmetrical facial expressions, moist mucous membranes Cardiovascular: regular rate and rhythm, no peripheral edema, warm extremities Respiratory: normal effort, able to speak in complete sentences, without wheezing, stridor, or abnormal breath sounds. No retractions or tachypnea. GI: abdomen soft, nondistended, without masses, rebound tenderness, positive Blanc sign, exquisite tenderness with right upper quadrant palpation during deep inspiration, patient does have lateral rt lower rib tenderness and right- sided CVA tenderness MSK: moves all extremities, neurovascularly intact, no weakness, normal tone Skin: brisk capillary refill, without pallor or erythema Neuro: normal speech and cognition, A&O x3, ambulatory, clear speech Psych: mental status is grossly normal, congruent mood, normal affect, pleasant and cooperative Initial Vital Signs Initial Vital Signs: Vital Signs Temperature 97.5 F L 08/06/22 12:46 Pulse Rate 72 08/06/22 12:46 Respiratory Rate 16 08/06/22 12:46 Blood Pressure 156/88 H 08/06/22 12:46 Pulse Oximetry 99 08/06/22 12:46 Oxygen Delivery Method 08/06/22 12:46 <Melisa Dominguez DO - Last Filed: 08/07/22 08:00> Initial Vital Signs Initial Vital Signs: Vital Signs Temperature 97.5 F L 08/06/22 12:46 Pulse Rate 72 08/06/22 12:46 Respiratory Rate 16 08/06/22 12:46 Blood Pressure 156/88 H 08/06/22 12:46 Pulse Oximetry 99 08/06/22 12:46 Oxygen Delivery Method 08/06/22 12:46 Course <NANCY Philip - Last Filed: 08/06/22 15:15> Orders Ordered: Discontinued Medications Hydrocodone Bitart/Acetaminophen (Hydrocodone/Acet 5/325 Tablet) 1 tab PO NOW ONE Stop: 08/06/22 14:46 Last Admin: 08/06/22 15:08 Dose: 1 tab Documented By: RAMY Hydromorphone HCl (Hydromorphone 0.5 Mg Inj) 0.5 mg IV NOW ONE Stop: 08/06/22 13:09 Last Admin: 08/06/22 13:25 Dose: 0.5 mg Documented By: GEORGE Ketorolac Tromethamine (Ketorolac 30 Mg/Ml Vial) 15 mg IV NOW ONE Stop: 08/06/22 13:15 Last Admin: 08/06/22 13:25 Dose: 15 mg Documented By: GEORGE Ondansetron HCl (Ondansetron 4 Mg/2 Ml Inj) 4 mg IV NOW PRN PRN Reason: Nausea And Vomiting Last Admin: 08/06/22 13:25 Dose: 4 mg Documented By: GEORGE Vital Signs Vital signs: Vital Signs - 8 hr 08/06/22 12:46 Temperature 97.5 F L Pulse Rate 72 Respiratory Rate 16 Blood Pressure 156/88 H Pulse Oximetry 99 Oxygen Delivery Method Room Air <Melisa Dominguez DO - Last Filed: 08/07/22 08:00> Orders Ordered: Discontinued Medications Hydrocodone Bitart/Acetaminophen (Hydrocodone/Acet 5/325 Tablet) 1 tab PO NOW ONE Stop: 08/06/22 14:46 Last Admin: 08/06/22 15:08 Dose: 1 tab Documented By: RAMY Hydromorphone HCl (Hydromorphone 0.5 Mg Inj) 0.5 mg IV NOW ONE Stop: 08/06/22 13:09 Last Admin: 08/06/22 13:25 Dose: 0.5 mg Documented By: GEORGE Ketorolac Tromethamine (Ketorolac 30 Mg/Ml Vial) 15 mg IV NOW ONE Stop: 08/06/22 13:15 Last Admin: 08/06/22 13:25 Dose: 15 mg Documented By: GOERGE Ondansetron HCl (Ondansetron 4 Mg/2 Ml Inj) 4 mg IV NOW PRN PRN Reason: Nausea And Vomiting Last Admin: 08/06/22 13:25 Dose: 4 mg Documented By: GEORGE Vital Signs Vital signs: Vital Signs - 8 hr 08/06/22 12:46 Temperature 97.5 F L Pulse Rate 72 Respiratory Rate 16 Blood Pressure 156/88 H Pulse Oximetry 99 Oxygen Delivery Method Room Air MDM - Abdominal Pain <NANCY Philip - Last Filed: 08/06/22 15:15> Lab Data Result diagrams: 08/06/22 13:10 08/06/22 13:10 Labs: Lab Results 08/06/22 08/06/22 08/06/22 Range/Units 12:57 13:10 13:10 WBC 11.0 (4.5-11.0) X10^3/uL RBC 5.10 (4.5-5.9) X10^6/uL Hgb 14.8 (13.5-17.5) g/dL Hct 43.1 (41-53) % MCV 84.5 (80-100) fL MCH 29.0 (26-34) PG MCHC 34.3 (30-36) % RDW 13.3 (11.6-14.8) % Plt Count 324 (150-400) X10^3/uL Neut % (Auto) 68.8 (50-75) % Lymph % (Auto) 22.1 L (25-40) % [place] % (Auto) 7.2 (3-14) % Eos % (Auto) 1.4 L (2-4) % Baso % (Auto) 0.5 (0-2) % Neut # (Auto) 7500 H (6132-5091) /uL Lymph # (Auto) 2400 (4095-7432) /uL [place] # (Auto) 800 (0-900) /uL Eos # (Auto) 200 (0-450) /uL Baso # (Auto) 100 (0-100) /uL Sodium 136 L (137-145) mmol/L Potassium 4.1 (3.4-5.1) mmol/L Chloride 101 (98-107) mmol/L Carbon Dioxide 26 (22-32) mmol/L BUN 10 (9-20) mg/dL Creatinine 0.85 (0.66-1.25) mg/dL Estimated GFR > 60 (>60) mL/min BUN/Creatinine Ratio 11.8 (6-22) Glucose 99 (70-100) mg/dL Calcium 9.0 (8.4-10.2) mg/dL Total Bilirubin 1.0 (0.2-1.3) mg/dL AST 30 (17-59) IU/L ALT 48 (<50) IU/L Alkaline Phosphatase 79 (38-126) U/L C-Reactive Protein (<1.0) mg/dL Total Protein 7.9 (6.3-8.2) g/dL Lipase 78 (23-300) U/L Procalcitonin (<0.5) ng/mL Urine RBC 10-30/hpf H (0-5/HPF) Urine WBC 1-5/hpf (0-5/HPF) Urine Bacteria None seen (None) Urine Yeast 10-30/hpf H (None) Ur Culture Indicated? Cult not indicated 08/06/22 08/06/22 Range/Units 13:10 13:10 WBC (4.5-11.0) X10^3/uL RBC (4.5-5.9) X10^6/uL Hgb (13.5-17.5) g/dL Hct (41-53) % MCV (80-100) fL MCH (26-34) PG MCHC (30-36) % RDW (11.6-14.8) % Plt Count (150-400) X10^3/uL Neut % (Auto) (50-75) % Lymph % (Auto) (25-40) % [place] % (Auto) (3-14) % Eos % (Auto) (2-4) % Baso % (Auto) (0-2) % Neut # (Auto) (4349-0994) /uL Lymph # (Auto) (0608-5507) /uL [place] # (Auto) (0-900) /uL Eos # (Auto) (0-450) /uL Baso # (Auto) (0-100) /uL Sodium (137-145) mmol/L Potassium (3.4-5.1) mmol/L Chloride (98-107) mmol/L Carbon Dioxide (22-32) mmol/L BUN (9-20) mg/dL Creatinine (0.66-1.25) mg/dL Estimated GFR (>60) mL/min BUN/Creatinine Ratio (6-22) Glucose (70-100) mg/dL Calcium (8.4-10.2) mg/dL Total Bilirubin (0.2-1.3) mg/dL AST (17-59) IU/L ALT (<50) IU/L Alkaline Phosphatase (38-126) U/L C-Reactive Protein 1.5 H (<1.0) mg/dL Total Protein (6.3-8.2) g/dL Lipase (23-300) U/L Procalcitonin 0.05 (<0.5) ng/mL Urine RBC (0-5/HPF) Urine WBC (0-5/HPF) Urine Bacteria (None) Urine Yeast (None) Ur Culture Indicated? Point of care testing: Urine Dip Bedside Urine Glucose Negative Bedside Urine Bilirubin - Negative Bedside Urine Ketone - Negative Urine Specific [place] 1.030 Bedside Urine Occult Blood +++ Bedside Urine pH 5.5 Bedside Urine Protein + 30 Bedside Urine Urobilinogen - Negative Bedside Urine Nitrite - Negative Bedside Urine Leukocytes - Negative Esterase Imaging Data US - abdomen: Radiologist's Impression: PROCEDURE: US ABDOMEN LIMITED ? INDICATIONS:? RIGHT UPPER QUADRANT PAIN ? TECHNIQUE:? Real-time focused scanning was performed of the abdomen, with image documentation.? ? COMPARISON:? [facility], CT, CT ABDOMEN PELVIS WO [facility], 12/05/2021, 13:18. ? FINDINGS:? This study is limited by body habitus and bowel gas. ? The liver demonstrates normal size. The liver demonstrates generalized moderately increased echogenicity.? The liver demonstrates a mildly heterogeneous appearance.? This decreases ultrasound sensitivity for detection of hepatic masses.? Likely fatty sparing can be seen adjacent to the gallbladder that measures a 3.4 cm. The main portal vein demonstrates normal size and demonstrates normal appearing, hepatopetal flow. ? ? No findings of gallstones or sludge are seen.? The gallbladder wall is not thickened, measuring 3 mm or less.? No specific pericholecystic fluid is seen.? The sonographic Blanc sign is negative. ? There is no biliary dilatation, the common bile duct measures 4-5 mm.? ? The pancreas is not well seen. ? The right kidney demonstrates normal size.? The proximal ureter is dilated at 1 .5 cm.? There is a 1 cm stone seen within the proximal ureter.? There is mild pelviectasis seen on the right. ? ? IMPRESSION:? 1 cm stone seen within the proximal right ureter.? Please consider a follow-up noncontrast CT for further evaluation. ? The liver demonstrates increased echogenicity.? This finding is nonspecific, yet it is most commonly attributed to fatty infiltration.? ? The gallbladder demonstrates a normal sonographic appearance. No biliary dilatation is seen. ? Note: Concordant preliminary findings given by the college or university business manager upon the completion of the examination to Brigida Andrews at 1:40 p.m. on August 06, 2022.? Dictated by: Garcia Darby M.D. on 08/06/2022 at 12:54 ? ? Approved by: Garcia Darby M.D. on 08/06/2022 at 12:56 ? CT scan - abdomen/pelvis: Radiologist's Impression: PROCEDURE:? CT KIDNEY URETER BLADDER (KUB) ? INDICATIONS:? rt ureteral stone 1cm ? TECHNIQUE:? Axial sections were acquired from the lung bases to the pubic symphysis.? Coronal and sagittal reformats were performed.? For radiation dose reduction, the following was used: ?automated exposure control, adjustment of mA and/or kV according to patient size.? ? COMPARISON:? [facility], US, US ABDOMEN LIMITED, 08/06/2022, 13:30.? [facility], CT, CT ABDOMEN PELVIS WO [facility], 12/05/2021, 13:18. ? FINDINGS:? Image quality:? Excellent.? ? Lung bases:? Unremarkable.? ? Heart:? No significant findings. ? URINARY: Right Kidney:? No hydronephrosis.? The stone previously in the proximal right ureter has now retracted and is at the right renal pelvis.? The stone has a Hounsfield measurement of 544. Right Ureter:? The proximal right ureter is dilated with a thickened wall.? It quickly tapers to a normal caliber. ? Left Kidney: ? No stones or hydronephrosis. Left Ureter:? No hydroureter.? ? Bladder:? Normal wall thickness. No stones. ? ? ? ABDOMEN: Liver:? Unremarkable.? ? Gallbladder:? Unremarkable.? ? Biliary ducts:? Unremarkable.? ? Pancreas:? Unremarkable.? ? Spleen:? Unremarkable.? ? Adrenal Glands:? Unremarkable.? ? ? Stomach and Bowel:? Stomach, small bowel loops, and colon are unremarkable.? Peritoneum:? No abnormal intraperitoneal fluid.? No free air.? ? Ventral Wall: ? No hernia.? Abdominal Nodes:? No enlarged retroperitoneal or mesenteric lymph nodes.? Vessels:? Aorta and inferior vena cava are normal in size.? ? PELVIS: Pelvic Organs:? Unremarkable.? ? Pelvic Nodes: Unremarkable. Miscellaneous:? Small bilateral fat containing inguinal hernias are seen. ? ? ? Bones:? Unremarkable. ? IMPRESSION:? ? 1. The previous proximal right ureteral stone is now in the right renal pelvis.? There is no right hydronephrosis.? The proximal right ureter is dilated with wall thickening.? It quickly assumes a normal caliber. ? 2. No other acute findings.? ? MDM Narrative Medical decision making narrative: CC: This is a 47-year-old male with history of ANABELLA, obesity and hyperlipidemia who presents to the emergency department with right flank pain, right upper quadrant pain and tenderness intermittently present with nausea and vomiting, worsening recently but has been ongoing for approximately 1 year. Differential diagnoses include, but are not limited to: Cholecystitis, choledocholithiasis, cholelithiasis, appendicitis, nephrolithiasis, pyelonephritis, acute cystitis, colitis, gastric ulcer, pancreatitis I have reviewed the patient's vital signs and nursing notes as well as prior records if available. Lab test results independently reviewed, pertinent findings: Blood present in patient's UA, no leukocytosis or anemia, CRP is mildly elevated 1.5, no elevation to procalcitonin, urine with mild amount of yeast My imaging interpretation: CT KUB shows a 1 cm calculus in the right renal pelvis without hydronephrosis. Proximal right ureter is dilated with wall thickening, ultrasound showing proximal right ureter stone Discussion of Management with other Health Professionals:Dr Arora Urology Re-evaluations/Consultations/Ongoing course of care: Called Dr. Arora who is reportedly management professionals for Urology on his office and cell number without answer 1300 patient was pulled back to the hallway from triage, was able to assess him and ordered pain medication and additional lab work to evaluate the etiology of his right upper quadrant pain 1320 notified by the charge nurse that she will not give the patient Dilaudid as ordered because she intends put the patient back in the waiting room. Patient is currently sitting in a chair in the side whole way, has a positive Blanc's sign, pain medication ordered and ultrasound is pending, labs were drawn and are pending 1340 industrial technician came by to report a 1 cm stone with right hydroureter noted in the right, ordered CT KUB to evaluate further etiology of right kidney and ureter will consult with Dr. Arora after chemistry results he is on-call for Ur ology, he was brought back to room 3 and his pain medication was given patient reports that he feels much better 1415 Dr. Arora called back, came over to look at the CT KUB in real-time, agree that patient's stone is in the renal pelvis and patient can be treated as an outpatient with pain control. Patient's symptoms improved over duration of stay with above-stated therapies. Social considerations that may affect disposition: Shared decision making: Discussed patient's results with him and plan of care recommended by Dr. Arora, patient agrees with this plan, he states understanding to return precautions which include worsening pain, fever, chills, difficulty urinating or change in symptoms Discussion: We will treat patient for right renal pelvis stone with hydrocodone, Toradol p.o., Zofran, encouraged him to stay hydrated, follow-up with Dr. Arora as an outpatient in the clinic, return for worsening symptoms. Disposition: see below, along with detailed discharge instructions that have been reviewed with the patient as well as indications for ED re-evaluation and additional outpatient follow-up. Questions are addressed and there is agreement with the plan and for follow-up. Patient is appropriate for outpatient management. MIPS: This encounter doesn't have any diagnosis associated with MIPS criteria. IBrigida ARNP, personally performed the services described in the d ocumentation, and it accurately records my words and actions. I collaborated with the ED attending physician for AVA level 2, 3, and some level 4s as appropriate. <Melisa Dominguez, DO - Last Filed: 08/07/22 08:00> Lab Data Labs: Lab Results 08/06/22 08/06/22 08/06/22 Range/Units 12:57 13:10 13:10 WBC 11.0 (4.5-11.0) X10^3/uL RBC 5.10 (4.5-5.9) X10^6/uL Hgb 14.8 (13.5-17.5) g/dL Hct 43.1 (41-53) % MCV 84.5 (80-100) fL MCH 29.0 (26-34) PG MCHC 34.3 (30-36) % RDW 13.3 (11.6-14.8) % Plt Count 324 (150-400) X10^3/uL Neut % (Auto) 68.8 (50-75) % Lymph % (Auto) 22.1 L (25-40) % [place] % (Auto) 7.2 (3-14) % Eos % (Auto) 1.4 L (2-4) % Baso % (Auto) 0.5 (0-2) % Neut # (Auto) 7500 H (3845-0712) /uL Lymph # (Auto) 2400 (7397-9164) /uL [place] # (Auto) 800 (0-900) /uL Eos # (Auto) 200 (0-450) /uL Baso # (Auto) 100 (0-100) /uL Sodium 136 L (137-145) mmol/L Potassium 4.1 (3.4-5.1) mmol/L Chloride 101 (98-107) mmol/L Carbon Dioxide 26 (22-32) mmol/L BUN 10 (9-20) mg/dL Creatinine 0.85 (0.66-1.25) mg/dL Estimated GFR > 60 (>60) mL/min BUN/Creatinine Ratio 11.8 (6-22) Glucose 99 (70-100) mg/dL Calcium 9.0 (8.4-10.2) mg/dL Total Bilirubin 1.0 (0.2-1.3) mg/dL AST 30 (17-59) IU/L ALT 48 (<50) IU/L Alkaline Phosphatase 79 (38-126) U/L C-Reactive Protein (<1.0) mg/dL Total Protein 7.9 (6.3-8.2) g/dL Lipase 78 (23-300) U/L Procalcitonin (<0.5) ng/mL Urine RBC 10-30/hpf H (0-5/HPF) Urine WBC 1-5/hpf (0-5/HPF) Urine Bacteria None seen (None) Urine Yeast 10-30/hpf H (None) Ur Culture Indicated? Cult not indicated 01/18/23 01/18/23 Range/Units 13:10 13:10 WBC (4.5-11.0) X10^3/uL RBC (4.5-5.9) X10^6/uL Hgb (13.5-17.5) g/dL Hct (41-53) % MCV (80-100) fL MCH (26-34) PG MCHC (30-36) % RDW (11.6-14.8) % Plt Count (150-400) X10^3/uL Neut % (Auto) (50-75) % Lymph % (Auto) (25-40) % [place] % (Auto) (3-14) % Eos % (Auto) (2-4) % Baso % (Auto) (0-2) % Neut # (Auto) (9702-7023) /uL Lymph # (Auto) (2451-0987) /uL [place] # (Auto) (0-900) /uL Eos # (Auto) (0-450) /uL Baso # (Auto) (0-100) /uL Sodium (137-145) mmol/L Potassium (3.4-5.1) mmol/L Chloride (98-107) mmol/L Carbon Dioxide (22-32) mmol/L BUN (9-20) mg/dL Creatinine (0.66-1.25) mg/dL Estimated GFR (>60) mL/min BUN/Creatinine Ratio (6-22) Glucose (70-100) mg/dL Calcium (8.4-10.2) mg/dL Total Bilirubin (0.2-1.3) mg/dL AST (17-59) IU/L ALT (<50) IU/L Alkaline Phosphatase (38-126) U/L C-Reactive Protein 1.5 H (<1.0) mg/dL Total Protein (6.3-8.2) g/dL Lipase (23-300) U/L Procalcitonin 0.05 (<0.5) ng/mL Urine RBC (0-5/HPF) Urine WBC (0-5/HPF) Urine Bacteria (None) Urine Yeast (None) Ur Culture Indicated? Point of care testing: Urine Dip Bedside Urine Glucose Negative Bedside Urine Bilirubin - Negative Bedside Urine Ketone - Negative Urine Specific [place] 1.030 Bedside Urine Occult Blood +++ Bedside Urine pH 5.5 Bedside Urine Protein + 30 Bedside Urine Urobilinogen - Negative Bedside Urine Nitrite - Negative Bedside Urine Leukocytes - Negative Esterase Discharge Plan Departure Patient Disposition: Home Clinical Impression: Calculus of renal pelvis, Acute flank pain Hematuria Qualifiers: Hematuria type: unspecified type Qualified Code(s): R31.9 - Hematuria, unsp ecified Instructions: Kidney Stones -- Adult, Renal (Kidney) Disease Diet -- For People Not on Dialysis Activity Restrictions/Additional Instructions: *You have been diagnosed with a 1 cm stone in your right kidney pelvis. I consulted with Dr. Arora, the urologist, he came over to this on imaging and that there is time intermittently where it moves and causes you this pain. He thinks that this can be treated as an outpatient with lithotripsy procedure. I will give you some pain control, a stool softener, and encourage you to use anti- inflammatories to reduce pain. The stone is too large to try and pass so Flomax will likely not help. Please call the office and schedule an appointment, he is aware of you and will follow-up with you. Your gallbladder on the other hand lo oks great, without any stone or other abnormality. Please follow-up a low-fat diet to avoid gallstones and gallbladder problems, I have given you some information on a renal diet which will hopefully prevent stone formation. There does not appear to be any infection at this time, thank you for coming in for evaluation, I hope you feel better soon. For your pain, take Tylenol 650 mg with Toradol every 8 hours, okay to take hydrocodone in addition to this. When the Toradol runs out, okay to use 800 mg of ibuprofen, must take that medication with food and water. CONTROLLED SUBSTANCE DISCHARGE (Narcotic) 1. You have been prescribed narcotic medications, it does have acetaminophen/Tylenol/paracetamol in it, DO NOT TAKE MORE THAN 4,00mg in 24 hours of Tylenol. *Tramadol does not contain tylenol. 2. While on these medications you cannot drive or operate heavy machinery. 3. You cannot sign legal documents or perform any duties such as this. 4. As long as you are taking opiate pain medications he should also be taking a stool softener such as Colace, Dulcolax, MiraLAX or prune juice, to help avoid constipation. *What to do: *Please continue to take your regular medications as directed. [ x] New medication prescriptions sent to your pharmacy: [[facility] ] [ ] New medication written as a paper prescription [ ] No new medications given *Please follow up with your primary care provider in 2-3 days, call for an appointment. Let them know you were seen in the Emergency Department and that we asked that you be seen for follow-up. We will electronically transmit a record of today's note if your PCP is in our system *If you do not have a primary care provider please contact [phone] to establish care with one of the [facility] primary care providers. *Return to Emergency Department if you should have any new, worsening, or concerning symptoms, such as [fever greater than 101F, chills, worsening pain, persistent vomiting or other bothersome symptoms]. Prescriptions: New hydrocodone-acetaminophen 5-325 mg tablet 1 tab PO TID PRN (Reason: pain) Qty: 14 0RF ondansetron 4 mg tablet,disintegrating 4 mg PO Q8H PRN (Reason: nausea and vomiting) Qty: 14 0RF ketorolac 10 mg tablet 10 mg PO Q8H PRN (Reason: pain) Qty: 20 0RF Rx Instructions: take with food polyethylene glycol 3350 [Miralax] 17 gram/dose powder 17 g PO DAILY PRN (Reason: constipation, for soft stool) Qty: 238 0RF No Action atorvastatin 40 mg tablet 40 mg PO DAILY Qty: 90 3RF paroxetine HCl 40 mg tablet 40 mg PO DAILY Referrals: Lokesh Vasquez MD [Primary Care Provider] - Charlie Arora MD [Physician] - 3-5 days Stand Alone Forms: Patient Portal/API <Melisa Dominguez DO - Last Filed: 08/07/22 08:00> Cosign ED Attending Cosignature Attestation: I was immediately available in the department for consultation. Documentation h as been reviewed.
[2022-08-06] MEDS: HYDROMORPHONE 0.5 MG INJ IV (13:25)
[2022-08-06] MEDS: KETOROLAC 30 MG/ML VIAL 15 MG IV (13:25)
[2022-08-06] MEDS: ONDANSETRON 4 MG/2 ML INJ IV (13:25)
[2022-08-06 13:34] LABS: Add Manual Diff / Slide Review NO; Basophils Absolute Auto 100 /uL (0-100); Basophils Percent Auto 0.5 % (0-2); Eosinophils Absolute Auto 200 /uL (0-450); Eosinophils Percent Auto 1.4 % (2-4); Hematocrit 43.1 % (41-53); Hemoglobin 14.8 g/dL (13.5-17.5); Lymphocytes Absolute Auto 2400 /uL (1100-4500); Lymphocytes Percent Auto 22.1 % (25-40); Mean Corpuscular HGB Conc 34.3 % (30-36); Mean Corpuscular Volume 84.5 fL (80-100); Monocytes Absolute Auto 800 /uL (0-900); Monocytes Percent Auto 7.2 % (3-14); Neutrophils Absolute Auto 7500 /uL (1500-7000); Neutrophils Percent Auto 68.8 % (50-75); Platelet Count 324 X10^3/uL (150-400); Red Cell Distribution Width 13.3 % (11.6-14.8)
[2022-08-06 13:36] LABS: RBC Urine 10-30/HPF (0-5/HPF); WBC Urine 1-5/HPF (0-5/HPF)
[2022-08-06 13:37] LABS: Bacteria Urine None Seen
[2022-08-06 13:38] LABS: Culture Indicated Urine Cult Not Indicated
--- NOTE | 2022-08-06 13:45 | DI.CT.S_ITS ---
PROCEDURE: CT KIDNEY URETER BLADDER (KUB) INDICATIONS: rt ureteral stone 1cm TECHNIQUE: Axial sections were acquired from the lung bases to the pubic symphysis. Coronal and sagittal reformats were performed. For radiation dose reduction, the following was used: automated exposure control, adjustment of mA and/or kV according to patient size. COMPARISON: [facility], US, US ABDOMEN LIMITED, 08/06/2022, 13:30. [facility], CT, CT ABDOMEN PELVIS WO CON, 12/05/2021, 13:18. FINDINGS: Image quality: Excellent. Lung bases: Unremarkable. Heart: No significant findings. URINARY: Right Kidney: No hydronephrosis. The stone previously in the proximal right ureter has now retracted and is at the right renal pelvis. The stone has a Hounsfield measurement of 544. Right Ureter: The proximal right ureter is dilated with a thickened wall. It quickly tapers to a normal caliber. Left Kidney: No stones or hydronephrosis. Left Ureter: No hydroureter. Bladder: Normal wall thickness. No stones. ABDOMEN: Liver: Unremarkable. Gallbladder: Unremarkable. Biliary ducts: Unremarkable. Pancreas: Unremarkable. Spleen: Unremarkable. Adrenal Glands: Unremarkable. Stomach and Bowel: Stomach, small bowel loops, and colon are unremarkable. Peritoneum: No abnormal intraperitoneal fluid. No free air. Ventral Wall: No hernia. Abdominal Nodes: No enlarged retroperitoneal or mesenteric lymph nodes. Vessels: Aorta and inferior vena cava are normal in size. PELVIS: Pelvic Organs: Unremarkable. Pelvic Nodes: Unremarkable. Miscellaneous: Small bilateral fat containing inguinal hernias are seen. Bones: Unremarkable. IMPRESSION: 1. The previous proximal right ureteral stone is now in the right renal pelvis. There is no right hydronephrosis. The proximal right ureter is dilated with wall thickening. It quickly assumes a normal caliber. 2. No other acute findings. Dictated by: Rajinder Paredes M.D. on 08/06/2022 at 14:52 Approved by: Rajinder Paredes M.D. on 08/06/2022 at 14:58
[2022-08-06 13:54] LABS: Alanine Aminotransferase 48 IU/L (<50); Alkaline Phosphatase 79 U/L (38-126); Aspartate Aminotransferase 30 IU/L (17-59); BUN Creatinine Ratio 11.8 (6-22); Blood Urea Nitrogen 10 mg/dL (9-20); Carbon Dioxide 26 mmol/L (22-32); Chloride 101 mmol/L (98-107); Estimated Glomerular Filt Rate > 60 mL/min (>60); Glucose 99 mg/dL (70-100); HEMOLYSIS < 15 (0-50); Lipase 78 U/L (23-300); Potassium 4.1 mmol/L (3.4-5.1); Sodium 136 mmol/L (137-145); Total Protein 7.9 g/dL (6.3-8.2)
[2022-08-06 13:56] LABS: C-Reactive Protein Quant 1.5 mg/dL (<1.0)
[2022-08-06 14:09] LABS: Procalcitonin 0.05 ng/mL (<0.5)
[2022-08-06] MEDS: HYDROCODONE/ACET 5/325 TABLET 1 TAB PO (15:08)
[2022-08-06 15:14] VITALS: BP 145/74; PULSE 76; O2SAT 95
[2022-08-08 16:34] LABS: Albumin 4.5 g/dL (3.5-5.0); Albumin Globulin Ratio 1.3 (1.0-2.8); Globulin 3.4 g/dL (1.7-4.1)
== END 2022-08-06 15:15 | disposition home or self-care (01) ==
PROVIDERS: Emergency Medicine; Emergency Provider Nurse Practitioner Critical Care Medicine; Family Provider Student in an Organized Health Care Education/Training Program; PCP Student in an Organized Health Care Education/Training Program
DX: N20.0 Calculus of kidney (principal); R31.9 Hematuria, unspecified; R10.11 Right upper quadrant pain
CPT/HCPCS: 36415; 74176; 76705; 80053; 81003; 81015; 83690; 84145; 85025; 86140; 93005; 96374; 96375; 99284; J1170; J1885; J2405

== ENCOUNTER → 2022-08-22 14:20 | Outpatient (CLI) | payer OTHER, SELFPAY ==
--- NOTE | 2022-08-22 14:21 | DI.RAD.S_ITS ---
PROCEDURE: XR KUB INDICATIONS: Re-assess renal stone TECHNIQUE: One view of the abdomen acquired. COMPARISON: [facility], CT, CT KIDNEY URETER BLADDER (KUB), 08/06/2022, 14:13. FINDINGS: Surgical changes and devices: None. Bowel: Nonobstructive bowel gas pattern. Soft tissues: Right renal pelvis 9 mm stone is in similar position. Pelvic calcifications probably represent phleboliths. Bones: No acute or suspicious osseous lesion. IMPRESSION: Similar 9 mm calcified right renal pelvis stone. Dictated by: Raghavendra Childress M.D. on 08/22/2022 at 15:04 Approved by: Raghavendra Childress M.D. on 08/22/2022 at 15:05
== END ==
PROVIDERS: Family Provider Student in an Organized Health Care Education/Training Program; PCP Student in an Organized Health Care Education/Training Program; Referring Provider Student in an Organized Health Care Education/Training Program; Visit Provider Student in an Organized Health Care Education/Training Program
DX: N20.0 Calculus of kidney (principal)
CPT/HCPCS: 74018

== ENCOUNTER 2022-09-23 13:47 | Day surgery (SDC) | payer OTHER, SELFPAY ==
[2022-09-19 11:23] VITALS: BMI 42.7
[2022-09-23] VITALS (10 sets, daily range): BP systolic 148–179; BP diastolic 71–92; PULSE 74–83; RESP 14–19; TEMP 36.6–36.9; O2SAT 91–98; BMI 42.7
[2022-09-23] MEDS: LACTATED RINGERS 1,000 ML 21 ML IV (14:23)
--- NOTE | 2022-09-23 15:22 | PM.PREOP ---
Pre-operative Note COVID-19 COVID-19 status: Not tested Criteria for continued procedure: Delay expected to result in less-positive ultimate med/surg outcome and Non-surgical alternatives not available or appropriate per current SOC Interval Note History & Physical reviewed/Exam performed by Physician: Yes Changes to H&P: No
[2022-09-23] MEDS: CEFAZOLIN VIAL 1 GM in SODIUM CHLORIDE 0.9% 100 ML IV (15:30)
[2022-09-23] MEDS: CEFAZOLIN 2 GM/100 ML PREMIX 100 ML IV (15:30)
--- NOTE | 2022-09-23 15:43 | SUR.OPER ---
Lithotomy on padded OR bed, head on pillow, arms wrapped with gel pad and tucked at side. Legs secured in holders specific to ESWL bed .
--- NOTE | 2022-09-23 16:23 | PM.PROC.1 ---
Procedures Date/Time Date of procedure: 09/23/22 Time of procedure: 16:52 General Procedure description: Bronchoscopy: 47M in OR for ESWL and ureteral stent. Case performed under GA with LMA and pressure support. At roughly 1 hour into the case, the pt regurgitated with visible secretions in LMA. Pt was emergently intubated with rapid anabaptist of SaO2 to mid-upper 90's. The ETT tube was suctioned with some return of small amount of fluid. Bronchoscopy was then performed through the ETT. No fluid, debris, or foreign body was noted. Examination proceeded to the L and R main bronchi, and to the L superior and inferior lobar bronchi, as well as the R superior lobar and bronchus intermedius. No fluid or debris was noted. Small amount of secretions were suctioned. Case was completed with no further complications, and pt was extubated to taken to PACU. SaO2 mid 90's in PACU with NCO2, BS clear bilaterally, no SOB, dyspnea.
--- NOTE | 2022-09-23 16:48 | PM.OP.1 ---
Procedure & Clinicians Procedure: Right extracorporeal shockwave lithotripsy, cystoscopy with right ureteral stent placement Same procedure as scheduled: Yes Indications: This is a very pleasant 47-year-old male who presented to the emergency department with complaints of right-sided pain he was found to have a right-sided renal calculus. The etiology of his pain given that it was in the renal pelvis was likely elsewhere and he presents this time for extracorporeal shockwave lithotripsy and stent placement to begin treatment of his stone. Surgeon: Charlie Arora Click Yes if Unassisted: Yes Anesthesia Type: General Operative Notes Findings: At cystoscopy urethral meatus is normal. Urethra is normal along its length with normal mucosa sphincter as well coapted prostate does show minimal obstructive character but does have a high bladder neck. Right and left ureteral orifice in normal position with clear efflux bladder is otherwise normal. The stone was noted to be in the renal pelvis. A 7 Andorran by multi length stent was left in position with no string. The stone received 2000 shocks at level 7 with fragmentation. It did appear to be a harder stone and may bear follow-up treatment. During the procedure at about 1200 shocks the patient had laryngospasm and the procedure was paused by while anesthesia dealt with this situation. He was intubated at that time. There were no further difficulties as the procedure proceeded. Closure Type: not applicable Specimen(s): none sent Prosthetic devices, grafts, tissues, transplants, or devices: Seven Andorran by multi length stent right collecting system no string Estimated Blood Loss (mL): 0 Blood products transfused: none Procedure in detail: Procedure in detail: After informed consent was obtained, the patient was identified and brought to the operating room. He was placed in a supine position on the Lithotripter and anesthesia was induced and maintained. After ensuring an adequate level of anesthesia the patient was transitioned to the lithotomy position where he was prepped, draped, prepared for Transurethral procedure. After prepping, draping time-out had ensuring an adequate level of anesthesia 22 Andorran cystoscope was passed through the urethral prostate in the bladder were cystoscopy was performed. The right ureteral orifice once again identified and a hybrid guidewire was passed up into the collecting system under fluoroscopic visualization. Stent was then passed over the wire positioned in the renal pelvis under fluoroscopic visualization in the bladder under direct vision. The grasping forceps was then inserted the stent grasped with a nylon heart is removed leaving the stent in good position. The patient then had the scope removed after the bladder was drained. At this point the stone was targeted via the imaging system and sharp waves delivered. Periodic reimaging and re localization was done to ensure maximal energy to the stone as noted above at about 1200 shocks the patient had laryngospasm and anesthesia asked that the procedure be pause which was done they then dealt with the situation the patient was intubated and they felt it was safe to proceed with the patient received the remainder of the shocks for a total of 2000 shocks at level 7. At this point the shockwave head was rotated out and it appeared that the stone was fragmented. It did appear to be a harder stone and it may need further treatment. At this point the patient was extubated seemingly having tolerated the procedure well transferred to the postanesthesia care unit for recovery. My plan would be to discharge the patient to home follow up my office in approximately 2 weeks patient is to strain his urine and save any fragments that he catches and bring to follow-up. Complications: none Post-operative Condition: stable Disposition: PACU Plan for aftercare: My plan would be to have the patient discharged to home to follow-up in approximately 2 weeks with a KUB is to strain his urine save any fragments.
[2022-09-23] MEDS: PHENAZOPYRIDINE 100 MG TABLET 200 MG PO (17:07)
[2022-09-23] MEDS: OXYBUTYNIN 5 MG TABLET PO (17:07)
--- NOTE | 2022-09-23 17:15 | SUR.PHASEI ---
Pt possibly aspirated during surgery. RN has given him an incentive spirometer to take home with him. RN taught him how to use the incentive spirometer. Pt instructed to use this when he is at home. Pt also given strainer and cup to bring back stone fragments. Pt had urninated on himself as he was waking up from surgery. Gown was changed. This information is per Dr. Arora. Pt was given some water and drank with out difficulty. Pt continues to trying to urinate.
[2022-09-23] MEDS: ACETAMINOPHEN 325 MG TABLET 650 MG PO (17:24)
[2022-09-23] MEDS: fentaNYL 100 MCG/2 ML INJ IV (17:25)
[2022-09-23] MEDS: ONDANSETRON 4 MG/2 ML INJ IV (17:25)
--- NOTE | 2022-09-23 17:30 | SUR.PHASEI ---
Report given to Sabino NAJERA
--- NOTE | 2022-09-23 18:17 | SUR.PHASEII ---
to BR and voided. no stones strained. small blood clots. pain improving, wants to go home, no n/v, taken to sons car in .
== END 2022-09-23 18:19 | disposition home or self-care (01) ==
PROVIDERS: Family Provider Student in an Organized Health Care Education/Training Program; PCP Student in an Organized Health Care Education/Training Program; Referring Provider Urology; Visit Provider Urology
PROC: (CPT 50590; principal; 2022-09-23 15:30)
PROC: (CPT 50590; 2022-09-23 15:30)
DX: N20.0 Calculus of kidney (principal); G47.33 Obstructive sleep apnea (adult) (pediatric)
CPT/HCPCS: 50590; 52332; J0690; J1100; J2250; J2405; J2704; J3010

== ENCOUNTER → 2022-10-03 12:22 | Outpatient (CLI) | payer OTHER, SELFPAY ==
--- NOTE | 2022-10-03 12:23 | DI.RAD.S_ITS ---
PROCEDURE: XR KUB INDICATIONS: renal stones TECHNIQUE: One view of the abdomen acquired. COMPARISON: [facility], CR, XR KUB, 08/22/2022, 14:28. CT 08/06/2022 FINDINGS: Surgical changes and devices: None. Bowel: Bowel gas pattern is normal. Soft tissues: A couple of right-sided stones measuring 6 mm and 5 mm, unchanged in position compared with recent CT. Right-sided nephroureteral stent in place. Bones: No suspicious bony lesions. IMPRESSION: A couple of right-sided stones measuring 6 mm and 5 mm, unchanged in position compared with recent CT. Right-sided nephroureteral stent in place. Dictated by: Daquan Max M.D. on 10/03/2022 at 13:34 Approved by: Daquan Max M.D. on 10/03/2022 at 13:35
== END ==
PROVIDERS: Family Provider Student in an Organized Health Care Education/Training Program; PCP Student in an Organized Health Care Education/Training Program; Referring Provider Urology; Visit Provider Urology
DX: N20.0 Calculus of kidney (principal); Z96.0 Presence of urogenital implants
CPT/HCPCS: 74018

== ENCOUNTER → 2022-10-29 13:01 | Outpatient (CLI) | payer OTHER, SELFPAY ==
--- NOTE | 2022-10-29 13:02 | DI.RAD.S_ITS ---
PROCEDURE: XR KUB INDICATIONS: Right kidney stone TECHNIQUE: One view of the abdomen acquired. COMPARISON: [facility], CR, XR KUB, 10/03/2022, 12:26. [facility], CR, XR KUB, 08/22/2022, 14:28. FINDINGS: Surgical changes and devices: None. Bowel: Bowel gas pattern is normal. Soft tissues: No suspicious abdominal calcifications. Visualized solid organ contours appear normal in size. Right-sided nephroureteral stent present. Bones: No suspicious bony lesions. IMPRESSION: No residual right-sided stones visualized. Dictated by: Daquan Max M.D. on 10/29/2022 at 14:51 Approved by: Daquan Max M.D. on 10/29/2022 at 14:55
== END ==
PROVIDERS: Family Provider Student in an Organized Health Care Education/Training Program; PCP Student in an Organized Health Care Education/Training Program; Referring Provider Urology; Visit Provider Urology
DX: N20.0 Calculus of kidney (principal); M54.9 Dorsalgia, unspecified; R10.9 Unspecified abdominal pain; G89.29 Other chronic pain; Z96.0 Presence of urogenital implants; Z80.42 Family history of malignant neoplasm of prostate
CPT/HCPCS: 74018; 81002; 82365; 87086

== ENCOUNTER → 2022-10-29 14:38 | Outpatient (CLI) | payer OTHER, SELFPAY ==
[2022-11-04 12:10] LABS: Ca oxalate dihydrate 20 % (.); Ca oxalate monohydr 80 % (.); Size 4x3 mm (.)
== END ==
PROVIDERS: Family Provider Student in an Organized Health Care Education/Training Program; PCP Student in an Organized Health Care Education/Training Program; Visit Provider Urology
DX: N20.0 Calculus of kidney (principal)
CPT/HCPCS: 82365; 87086

== ENCOUNTER → 2022-11-11 15:46 | Outpatient (CLI) | payer OTHER, SELFPAY ==
[2022-11-11 16:38] LABS: Calcium 9.3 mg/dL (8.4-10.2); Uric Acid 6.6 mg/dL (3.5-8.5)
[2022-11-16 11:01] LABS: Calcium 9.4 mg/dL (8.7-10.2); Parathyroid Hormone, Intact 78 pg/mL (15-65)
== END ==
PROVIDERS: Family Provider Student in an Organized Health Care Education/Training Program; PCP Student in an Organized Health Care Education/Training Program; Referring Provider Urology; Visit Provider Urology
DX: N20.0 Calculus of kidney (principal); R31.29 Other microscopic hematuria; Z80.42 Family history of malignant neoplasm of prostate
CPT/HCPCS: 36415; 81002; 82310; 83970; 84550; 99213

== ENCOUNTER → 2022-11-21 12:36 | Outpatient (CLI) | payer OTHER, SELFPAY ==
[2022-11-25 13:36] LABS: Calcium 9.7 mg/dL (8.7-10.2); Parathyroid Hormone, Intact 63 pg/mL (15-65)
== END ==
PROVIDERS: Family Provider Student in an Organized Health Care Education/Training Program; PCP Student in an Organized Health Care Education/Training Program; Referring Provider Urology; Visit Provider Urology
DX: N20.0 Calculus of kidney (principal)
CPT/HCPCS: 36415; 82310; 83970

== ENCOUNTER → 2023-01-02 08:11 | Outpatient (CLI) | payer OTHER, SELFPAY | PROVIDERS: Family Provider Student in an Organized Health Care Education/Training Program; PCP Student in an Organized Health Care Education/Training Program; Visit Provider Urology | DX: N20.0 Calculus of kidney (principal); M54.9 Dorsalgia, unspecified | CPT/HCPCS: 87086 ==

== ENCOUNTER → 2023-01-02 08:36 | Outpatient (CLI) | payer OTHER, SELFPAY ==
[2023-01-02 10:31] LABS: Calcium 9.6 mg/dL (8.4-10.2); Phosphorous 3.6 mg/dL (2.5-4.5); Uric Acid 7.4 mg/dL (3.5-8.5)
[2023-01-04 11:36] LABS: Calcium 9.7 mg/dL (8.7-10.2); Parathyroid Hormone, Intact 63 pg/mL (15-65)
== END ==
PROVIDERS: Family Provider Student in an Organized Health Care Education/Training Program; PCP Student in an Organized Health Care Education/Training Program; Referring Provider Urology; Visit Provider Urology
DX: N20.0 Calculus of kidney (principal); R82.994 Hypercalciuria; R82.998 Other abnormal findings in urine; M54.9 Dorsalgia, unspecified; N47.1 Phimosis; Z80.42 Family history of malignant neoplasm of prostate
CPT/HCPCS: 36415; 81002; 82310; 83970; 84100; 84550; 87086; 99214

== ENCOUNTER 2023-01-06 06:31 | Day surgery (SDC) | payer OTHER, SELFPAY ==
[2023-01-01 13:43] VITALS: BMI 42.7
--- NOTE | 2023-01-06 | PATH_ITS ---
[facility] Accession Number: [id number] No. of containers..01 Tissue . 01 Material submitted: . foreskin - FORESKIN . 01 Diagnosis: Foreskin, Biopsy: Fragment of wrinkled skin with inflammation and congestion. MRV 01/13/2023 1545 Local . 01 Electronically signed: . Maria T Salmon MD, Dermatopathologist NPI- [id number] . 01 Gross description: . The specimen is received in formalin labeled with the patient's name, , and foreskin, and consists of a mora, wrinkled, irregular fragment of skin measuring 5.3 x 3.8 cm and excised to a depth of 0.2 cm. The margin is inked blue, and sectioning reveals a red-pink soft cut surface with no lesions grossly identified. Dispatcher Maintenance Service sections are submitted in cassettes A1-A2. ([id number]) /ARMIN 01/07/2023 0832 Local . 01 Pathologist provided ICD-10: N47.1 . 01 CPT . 229357 Specimen Comment: A courtesy copy of this report has been sent to [phone] Performed at: 01 [facility] [address] [place] [address], [place], [place] [id number] MD Pedro Serrato MD Phone: [phone]
[2023-01-06 06:58] VITALS: BP 140/80; PULSE 65; RESP 17; TEMP 36.3; O2SAT 97; BMI 42.7
[2023-01-06] MEDS: LACTATED RINGERS 1,000 ML 21 ML IV (07:02)
--- NOTE | 2023-01-06 07:33 | PM.PREOP ---
Pre-operative Note COVID-19 COVID-19 status: Not tested Criteria for continued procedure: Non-surgical alternatives not available or appropriate per current SOC Interval Note History & Physical reviewed/Exam performed by Physician: Yes Changes to H&P: No
[2023-01-06] MEDS: CEFAZOLIN 2 GM/100 ML PREMIX 100 ML IV (07:44)
[2023-01-06] MEDS: CEFAZOLIN VIAL 1 GM in SODIUM CHLORIDE 0.9% 100 ML IV (07:44)
--- NOTE | 2023-01-06 07:58 | SUR.OPER ---
Supine on padded OR bed, head on pillow, arms secured on padded arm boards at <90 degrees abduction, legs uncrossed, safety belt at thigh, tape over blanket over lower legs.
[2023-01-06] MEDS: BUPIVACAINE 0.25% (PF) VIAL 30 ML INJ (08:09)
[2023-01-06 08:46] VITALS: BP 104/66; PULSE 73; RESP 17; TEMP 36.6; O2SAT 93
--- NOTE | 2023-01-06 08:46 | PM.OP.1 ---
Procedure & Clinicians Procedure: Circumcision Same procedure as scheduled: Yes Indications: This 47-year-old male has phimosis and history of balanitis and presents this time for circumcision to treat these 2 conditions. Surgeon: Charlie Arora Click Yes if Unassisted: Yes Anesthesia Type: General Operative Notes Findings: Phimotic ring on the preputial foreskin. No evidence of balanitis today otherwise normal anatomy. Closure Type: primary Specimen(s): other (Foreskin) Estimated Blood Loss (mL): 10 Blood products transfused: none Procedure in detail: Procedure in detail: After informed consent was obtained, the patient was identified and brought to the operating room where he was placed in his supine position on the table. The patient then had anesthesia induced and maintained. The patient was then shaved, prepped, draped, prepared for circumcision. After prepping, draping, ensuring an adequate level of anesthesia and time-out the lines of incision were marked circumferentially on the subcoronal skin and then on the shaft skin. The incision was made circumferentially in the subcoronal area. And then on the shaft skin. The intervening sleeve of tissue was then removed with sharp and electrocautery dissection. Points of bleeding were then controlled with the cautery. And attention was turned to closure skin edges were reapproximated with interrupted 2-0 chromic gut. The wound was then infiltrated with 0.25% plain Marcaine bacitracin and dressing were applied and the patient was awakened having tolerated the procedure well to be transferred to the postanesthesia care unit for recovery. He will then be discharged to home. There were no complications Complications: none Post-operative Condition: stable Disposition: PACU Plan for aftercare: Patient to be discharged to home to follow up my office in 10-14 days
[2023-01-06 08:51] VITALS: BP 109/71; PULSE 74; RESP 18; O2SAT 93
[2023-01-06 08:56] VITALS: BP 118/76; PULSE 69; RESP 14; TEMP 36.4; O2SAT 95
[2023-01-06 09:01] VITALS: BP 121/75; PULSE 70; RESP 19; O2SAT 94
[2023-01-06 09:04] VITALS: BP 121/72; PULSE 75; RESP 19; TEMP 36.6; O2SAT 95
[2023-01-06] MEDS: OXYCODONE/ACETAMINOPHEN 5/325 TABLET 1 TAB PO (09:11)
== END 2023-01-06 09:20 | disposition home or self-care (01) ==
PROVIDERS: Family Provider Student in an Organized Health Care Education/Training Program; PCP Pediatrics; Referring Provider Urology; Visit Provider Urology
PROC: (CPT 54161; principal; 2023-01-06 07:45)
DX: N47.1 Phimosis (principal)
CPT/HCPCS: 54161; J0690; J1100; J2405; J2704; J3010

== ENCOUNTER 2023-03-30 12:31 | Emergency (ER) | payer OTHER, SELFPAY ==
[2023-03-30 12:36] VITALS: BP 173/92; PULSE 66; RESP 18; TEMP 36.6; O2SAT 99; BMI 41.8
[2023-03-30 12:59] LABS: Add Manual Diff / Slide Review NO; Basophils Absolute Auto 100 /uL (0-100); Eosinophils Absolute Auto 200 /uL (0-450); Eosinophils Percent Auto 2.3 % (2-4); Hematocrit 42.7 % (41-53); Lymphocytes Absolute Auto 2800 /uL (1100-4500); Lymphocytes Percent Auto 29.7 % (25-40); Mean Corpuscular Hemoglobin 29.3 PG (26-34); Mean Corpuscular Volume 83.7 fL (80-100); Monocytes Absolute Auto 700 /uL (0-900); Monocytes Percent Auto 7.4 % (3-14); Neutrophils Absolute Auto 5700 /uL (1500-7000); Neutrophils Percent Auto 59.6 % (50-75); Platelet Count 310 X10^3/uL (150-400); Red Cell Distribution Width 13.3 % (11.6-14.8); White Blood Cell Count 9.6 X10^3/uL (4.5-11.0)
[2023-03-30 13:02] LABS: Prothrombin Time 11.8 SECONDS (10.1-12.7)
[2023-03-30 13:06] LABS: Alanine Aminotransferase 38 IU/L (<50); Albumin 4.2 g/dL (3.5-5.0); Albumin Globulin Ratio 1.2 (1.0-2.8); Alkaline Phosphatase 70 U/L (38-126); Aspartate Aminotransferase 27 IU/L (17-59); Bilirubin Total 0.9 mg/dL (0.2-1.3); Blood Urea Nitrogen 12 mg/dL (9-20); Calcium 9.3 mg/dL (8.4-10.2); Carbon Dioxide 26 mmol/L (22-32); Chloride 104 mmol/L (98-107); Estimated Glomerular Filt Rate > 60 mL/min (>60); Globulin 3.5 g/dL (1.7-4.1); Glucose 98 mg/dL (70-100); HEMOLYSIS < 15 (0-50); Lipase 92 U/L (23-300); Potassium 4.5 mmol/L (3.4-5.1); Sodium 138 mmol/L (137-145); Total Protein 7.7 g/dL (6.3-8.2)
--- NOTE | 2023-03-30 13:17 | DI.US.S_ITS ---
PROCEDURE: US ABDOMEN LIMITED INDICATIONS: RIGHT UPPER QUADRANT PAIN TECHNIQUE: Real-time scanning was performed of the abdominal and retroperitoneal organs, with image documentation. COMPARISON: [facility], , US ABDOMEN LIMITED, 08/06/2022, 13:30. FINDINGS: Liver: The liver measures 17.7 cm in length and demonstrates increased echogenicity. Gallbladder: The gallbladder wall measures 2.8 mm in diameter. No stones, sludge, pericholecystic fluid, or sonographic Blanc sign. Biliary ducts: Intrahepatic bile ducts are non-dilated. Extrahepatic bile duct caliber measures 5.3 mm. Normal is 6-7 mm or less in diameter, or 10 mm or less post-cholecystectomy. Pancreas: Visualized portions of the pancreas are sonographically normal. The tail the pancreas is not visualized. IMPRESSION: 1. Increased hepatic echogenicity noted likely related to fatty infiltration of the liver but other sources of hepatocellular disease cannot be excluded. 2. No cholelithiasis or findings to suggest choledocholithiasis or acute cholecystitis. Dictated by: Virginie Matias M.D. on 03/30/2023 at 14:29 Approved by: Virginie Matias M.D. on 03/30/2023 at 14:30
--- NOTE | 2023-03-30 13:17 | DI.CT.S_ITS ---
PROCEDURE: CT ABDOMEN PELVIS W CON INDICATIONS: ab pain TECHNIQUE: After the administration of intravenous contrast, axial sections acquired from the lung bases to the pubic symphysis. Coronal and sagittal reformats were performed. For radiation dose reduction, the following was used: automated exposure control, adjustment of mA and/or kV according to patient size. COMPARISON: [facility], CT, CT KIDNEY URETER BLADDER (KUB), 08/06/2022, 14:13. FINDINGS: Image quality: Excellent. Lung bases: Unremarkable. Heart: No significant findings. ABDOMEN: Liver: Unremarkable. Gallbladder: Is within normal limits Biliary ducts: Unremarkable. Pancreas: Unremarkable. Spleen: Unremarkable. Adrenal Glands: Unremarkable. Kidneys and Ureters: 5 mm calcification within the right renal pelvis. Mild dilatation of the right renal pelvis which demonstrates mild surrounding fat stranding. Stomach and Bowel: Stomach, small bowel loops, and colon are unremarkable. Appendix is not seen. Peritoneum: No abnormal intraperitoneal fluid. No free air. Ventral Wall: No hernias. Abdominal Nodes: No retroperitoneal or mesenteric adenopathy by size criteria. Vessels: Aorta and inferior vena cava are normal in size. PELVIS: Pelvic Organs: Unremarkable. Bladder: Unremarkable. Pelvic Nodes: No enlarged lymph nodes. Miscellaneous: No hernias are seen. Bones: Unremarkable. IMPRESSION: 1. Right renal pelvic calculus associated a mildly dilated right renal pelvis with mild surrounding fat stranding. Findings could indicate infection. Correlation with urinalysis recommended. Dictated by: Chinmay Velazquez M.D. on 03/30/2023 at 14:21 Approved by: Chinmay Velazquez M.D. on 03/30/2023 at 14:23
--- NOTE | 2023-03-30 13:17 | ED.ABDPAIN ---
HPI - Abdominal Pain General Chief Complaint: Abdominal Pain Stated Complaint: sent by [facility] for upper ABD pain/ nausea Time Seen by Provider: 03/30/23 13:06 Source: patient Mode of arrival: Ambulatory History of Present Illness HPI narrative: Patient 48-year-old male history of hyperlipidemia presenting today with 2 weeks of abdominal discomfort. He reports it is all across his abdomen. Sometimes goes through to his back not really up to his chest. Not associated with food sometimes feels nauseous but overall eating and drinking normally. Denies any alcohol use. Denies any fever or chills. Related Data Home Medications Medication Instructions Recorded Confirmed paroxetine HCl 40 mg tablet 40 mg PO DAILY 04/03/21 03/19/23 Previous Rx's Medication Instructions Recorded atorvastatin 40 mg tablet 40 mg PO DAILY #90 tabs 05/04/20 ondansetron 4 mg disintegrating 4 mg PO Q8H PRN nausea and 03/30/23 tablet vomiting #20 tabs Allergies Allergy/AdvReac Type Severity Reaction Status Date / Time No Known Drug Allergies Allergy Verified 03/30/23 12:39 Review of Systems Review of Systems ROS Unobtainable: All systems reviewed & are unremarkable except as noted in HPI and below Patient History Medical History Arthritis Biceps tendonitis on left Bilateral shoulder pain Calcium oxalate stones Family history of prostate cancer in father High urine sodium History of balanitis History of phimosis of penis Hypercalciuria Impaired vision Kidney stones Left rotator cuff tear Phimosis of penis Plantar fasciitis Right renal stone Right sided abdominal pain Right-sided back pain Sleep apnea Surgical History History of circumcision History of shoulder surgery History of urologic surgery (09/23/22) Family History Father Cancer Grandmother Diabetes mellitus Social History marital status: number of children: 3 household members: spouse and children Smoking Status: Former smoker alcohol intake: never Type(s) of exercise: walking frequency: 3-4 times per week Smoking Status: Former smoker alcohol intake frequency: 0-2 drinks per day Substance Use Type: does not use Exam Initial Vital Signs Initial Vital Signs: Vital Signs Temperature 97.8 F 03/30/23 12:36 Pulse Rate 66 03/30/23 12:36 Respiratory Rate 18 03/30/23 12:36 Blood Pressure 173/92 H 03/30/23 12:36 Pulse Oximetry 99 03/30/23 12:36 Oxygen Delivery Method Room Air 03/30/23 12:36 GENERAL: Alert well-appearing 48-year-old male and in no acute distress. HEENT: Head atraumatic,EOMI, pupils reactive, face symmetric, moist mucous membranes CARDIOVASCULAR: Regular rate and rhythm without murmurs, rubs or gallops. RESPIRATORY: Breath sounds equal bilaterally, no wheezes rales or rhonchi. ABDOMEN: Soft, periumbilical pain no real lower abdominal pain mild epigastric pain negative Blanc sign EXTREMITIES: Normal range of motion, no clubbing or edema. Neurovascularly intact NEUROLOGICAL: Alert and oriented x4. SKIN: Warm, dry, no laceration, no petechiae, no rashes or lesions. Course Orders Ordered: ED Orders 03/30/23 12:40 EKG-12 Lead Stat 03/30/23 12:45 Complete Blood Count AUTO DIFF Stat Comprehensive Metabolic Panel Stat Lipase Stat Prothrombin Time INR Stat Troponin & CK Cardiac Panel Stat 03/30/23 13:17 CT abdomen pelvis w con Stat US abdomen limited Stat 03/30/23 15:01 Urine Microscopic Stat Discontinued Medications Ketorolac Tromethamine (Ketorolac 30 Mg/Ml Vial) 15 mg IV NOW ONE Stop: 03/30/23 15:37 Last Admin: 03/30/23 15:52 Dose: 15 mg Documented By: Ondansetron HCl (Ondansetron 4 Mg Odt) 4 mg PO NOW PRN PRN Reason: Nausea And Vomiting Ondansetron HCl (Ondansetron 4 Mg/2 Ml Inj) 4 mg IV NOW PRN PRN Reason: Nausea And Vomiting Ondansetron HCl (Ondansetron 4 Mg/2 Ml Inj) 4 mg IV NOW ONE Stop: 03/30/23 15:37 Last Admin: 03/30/23 15:51 Dose: 4 mg Documented By: Vital Signs Vital signs: Vital Signs - 8 hr 03/30/23 12:36 03/30/23 15:50 03/30/23 15:51 Temperature 97.8 F Pulse Rate 66 66 Respiratory Rate 18 Blood Pressure 173/92 H 144/89 H Pulse Oximetry 99 100 Oxygen Delivery Method Room Air 03/30/23 15:51 Temperature Pulse Rate 64 Respiratory Rate Blood Pressure Pulse Oximetry 99 Oxygen Delivery Method MDM - Abdominal Pain Lab Data 03/30/23 12:45 03/30/23 12:45 Labs: Lab Results 03/30/23 03/30/23 03/30/23 Range/Units 12:45 12:45 12:45 WBC 9.6 (4.5-11.0) X10^3/uL RBC 5.10 (4.5-5.9) X10^6/uL Hgb 15.0 (13.5-17.5) g/dL Hct 42.7 (41-53) % MCV 83.7 (80-100) fL MCH 29.3 (26-34) PG MCHC 35.0 (30-36) % RDW 13.3 (11.6-14.8) % Plt Count 310 (150-400) X10^3/uL Neut % (Auto) 59.6 (50-75) % Lymph % (Auto) 29.7 (25-40) % [place] % (Auto) 7.4 (3-14) % Eos % (Auto) 2.3 (2-4) % Baso % (Auto) 1.0 (0-2) % Neut # (Auto) 5700 (7299-8641) /uL Lymph # (Auto) 2800 (6889-3791) /uL [place] # (Auto) 700 (0-900) /uL Eos # (Auto) 200 (0-450) /uL Baso # (Auto) 100 (0-100) /uL PT 11.8 (10.1-12.7) SECONDS INR 1.0 (0.9-1.3) Sodium 138 (137-145) mmol/L Potassium 4.5 (3.4-5.1) mmol/L Chloride 104 (98-107) mmol/L Carbon Dioxide 26 (22-32) mmol/L BUN 12 (9-20) mg/dL Creatinine 0.86 (0.66-1.25) mg/dL Estimated GFR > 60 (>60) mL/min BUN/Creatinine Ratio 14.0 (6-22) Glucose 98 (70-100) mg/dL Calcium 9.3 (8.4-10.2) mg/dL Total Bilirubin 0.9 (0.2-1.3) mg/dL AST 27 (17-59) IU/L ALT 38 (<50) IU/L Alkaline Phosphatase 70 (38-126) U/L Total Creatine Kinase (55-170) U/L Troponin I (0.01-0.034) ng/mL Total Protein 7.7 (6.3-8.2) g/dL Albumin 4.2 (3.5-5.0) g/dL Globulin 3.5 (1.7-4.1) g/dL Albumin/Globulin Ratio 1.2 (1.0-2.8) Lipase 92 (23-300) U/L Urine RBC (0-5/HPF) Urine WBC (0-5/HPF) Ur Squamous Epith Cells (0-5/HPF) Urine Bacteria (None) Ur Culture Indicated? 03/30/23 03/30/23 Range/Units 12:45 15:01 WBC (4.5-11.0) X10^3/uL RBC (4.5-5.9) X10^6/uL Hgb (13.5-17.5) g/dL Hct (41-53) % MCV (80-100) fL MCH (26-34) PG MCHC (30-36) % RDW (11.6-14.8) % Plt Count (150-400) X10^3/uL Neut % (Auto) (50-75) % Lymph % (Auto) (25-40) % [place] % (Auto) (3-14) % Eos % (Auto) (2-4) % Baso % (Auto) (0-2) % Neut # (Auto) (9542-9058) /uL Lymph # (Auto) (5173-1461) /uL [place] # (Auto) (0-900) /uL Eos # (Auto) (0-450) /uL Baso # (Auto) (0-100) /uL PT (10.1-12.7) SECONDS INR (0.9-1.3) Sodium (137-145) mmol/L Potassium (3.4-5.1) mmol/L Chloride (98-107) mmol/L Carbon Dioxide (22-32) mmol/L BUN (9-20) mg/dL Creatinine (0.66-1.25) mg/dL Estimated GFR (>60) mL/min BUN/Creatinine Ratio (6-22) Glucose (70-100) mg/dL Calcium (8.4-10.2) mg/dL Total Bilirubin (0.2-1.3) mg/dL AST (17-59) IU/L ALT (<50) IU/L Alkaline Phosphatase (38-126) U/L Total Creatine Kinase 46 L (55-170) U/L Troponin I < 0.012 (0.01-0.034) ng/mL Total Protein (6.3-8.2) g/dL Albumin (3.5-5.0) g/dL Globulin (1.7-4.1) g/dL Albumin/Globulin Ratio (1.0-2.8) Lipase (23-300) U/L Urine RBC 1-5/hpf D (0-5/HPF) Urine WBC 0-1/hpf (0-5/HPF) Ur Squamous Epith Cells 1-5 /hpf (0-5/HPF) Urine Bacteria None seen (None) Ur Culture Indicated? Cult not indicated Point of care testing: Urine Dip Bedside Urine Glucose Negative Bedside Urine Bilirubin - Negative Bedside Urine Ketone - Negative Urine Specific [place] 1.010 Bedside Urine Occult Blood +/- Bedside Urine pH 6.0 Bedside Urine Protein - Negative Bedside Urine Urobilinogen - Negative Bedside Urine Nitrite - Negative Bedside Urine Leukocytes - Negative Esterase Imaging Data CT scan - abdomen/pelvis: Radiologist's Impression: PROCEDURE:? CT ABDOMEN PELVIS W CON ? INDICATIONS:? ab pain ? TECHNIQUE:? After the administration of intravenous contrast, axial sections acquired from the lung bases to the pubic symphysis.? Coronal and sagittal reformats were performed.? For radiation dose reduction, the following was used:? automated exposure control, adjustment of mA and/or kV according to patient size.? ? COMPARISON:? [facility], CT, CT KIDNEY URETER BLADDER (KUB), 08/06/2022, 14:13. ? FINDINGS:? Image quality:? Excellent.? ? Lung bases:? Unremarkable. Heart:? No significant findings. ? ABDOMEN: Liver:? Unremarkable.? ? Gallbladder:? Is within normal limits? ? Biliary ducts:? Unremarkable.? ? Pancreas:? Unremarkable.? ? Spleen:? Unremarkable.? ? Adrenal Glands:? Unremarkable.? ? Kidneys and Ureters:? 5 mm calcification within the right renal pelvis.? Mild dilatation of the right renal pelvis which demonstrates mild surrounding fat stranding. ? Stomach and Bowel:? Stomach, small bowel loops, and colon are unremarkable.? Appendix is not seen. Peritoneum:? No abnormal intraperitoneal fluid.? No free air.? ? Ventral Wall: ? No hernias.? Abdominal Nodes:? No retroperitoneal or mesenteric adenopathy by size criteria.? Vessels:? Aorta and inferior vena cava are normal in size.? ? PELVIS: Pelvic Organs:? Unremarkable.? ? Bladder:? Unremarkable.? ? Pelvic Nodes: No enlarged lymph nodes.? Miscellaneous: No hernias are seen. ? ? ? Bones:? Unremarkable.? IMPRESSION:? 1. Right renal pelvic calculus associated a mildly dilated right renal pelvis with mild surrounding fat stranding.? Findings could indicate infection.? Correlation with urinalysis recommended.? ? ? Dictated by: Chinmay Velazquez M.D. on 03/30/2023 at 14:21 ? ? Approved by: Chinmay Velazquez M.D. on 03/30/2023 at 14:23 ? US - abdomen: Radiologist's Impression: PROCEDURE:? US ABDOMEN LIMITED ? INDICATIONS:? RIGHT UPPER QUADRANT PAIN ? TECHNIQUE:? Real-time scanning was performed of the abdominal and retroperitoneal organs, with image documentation.? ? COMPARISON:? [facility], US ABDOMEN LIMITED, 08/06/2022, 13:30. ? FINDINGS:? ? Liver:? The liver measures 17.7 cm in length and demonstrates increased echogenicity. ? Gallbladder:? The gallbladder wall measures 2.8 mm in diameter. No stones, sludge, pericholecystic fluid, or sonographic Blanc sign. ? Biliary ducts:? Intrahepatic bile ducts are non-dilated.? Extrahepatic bile duct caliber measures 5.3 mm.? Normal is 6-7 mm or less in diameter, or 10 mm or less post-cholecystectomy.? ? Pancreas:? Visualized portions of the pancreas are sonographically normal.? The tail the pancreas is not visualized. ? ? IMPRESSION:? ? 1. Increased hepatic echogenicity noted likely related to fatty infiltration of the liver but other sources of hepatocellular disease cannot be excluded.? ? 2. No cholelithiasis or findings to suggest choledocholithiasis or acute cholecystitis. ? Dictated by: Virginie Matias M.D. on 03/30/2023 at 14:29 ? ? Approved by: Virginie Matias M.D. on 03/30/2023 at 14:3 ECG Data Interpretation: Normal sinus rhythm rate 65 HI interval 170 QRS [address] changes T-wave inversions 3 MDM Narrative Medical decision making narrative: Patient 48-year-old male presents today with abdominal pain. It has been ongoing for the last 2 weeks right across his upper abdomen mild tenderness in Blanc's area. However liver enzymes bilirubin are negative. Ultrasound does show any infiltration but no coli lithiasis or cholecystitis CT again does not show any abnormality. No evidence of pancreatitis. No leukocytosis. He does have right renal stone but no ureteral calculi. No evidence of a UTI. Patient is given Toradol and Zofran here in the ED Zofran to go home with. This time no need for admission. EKG also does not show any abnormality and troponin is negative. Discharge Plan Departure Patient Disposition: Home Clinical Impression: Abdominal pain Instructions: DI for Abdominal Pain-Adult Activity Restrictions/Additional Instructions: *You have been diagnosed with abdominal pain *What to do: At this time unknown cause of your abdominal pain. You do have a fatty liver but not cause of your pain. You do have a kidney stone on the right side in the kidney but not yet moving. Blood work is reassuring. *Continue to take medications as directed Tylenol Motrin as needed for pain Zofran 4 mg every 8 hours if needed for nausea vomiting *Follow up with your primary care provider in 2-3 days or call [phone] *Return to ER if you should have increasing pain nausea vomiting fever [or] any new, worsening or concerning symptoms Prescriptions: New ondansetron 4 mg tablet,disintegrating 4 mg PO Q8H PRN (Reason: nausea and vomiting) Qty: 20 0RF No Action atorvastatin 40 mg tablet 40 mg PO DAILY Qty: 90 3RF paroxetine HCl 40 mg tablet 40 mg PO DAILY Referrals: Kris Mejia MD [Primary Care Provider] - Stand Alone Forms: Patient Portal/API
[2023-03-30 14:57] LABS: Creatine Kinase 46 U/L (55-170)
[2023-03-30 15:09] LABS: Troponin I < 0.012 ng/mL (0.01-0.034)
[2023-03-30 15:20] LABS: Bacteria Urine None Seen; Culture Indicated Urine Cult Not Indicated; RBC Urine 1-5/HPF (0-5/HPF); Squamous Epithelial Cell Urine 1-5 /HPF (0-5/HPF); WBC Urine 0-1/HPF (0-5/HPF)
[2023-03-30 15:50] VITALS: PULSE 66; O2SAT 100
[2023-03-30 15:51] VITALS: BP 144/89; PULSE 64; O2SAT 99
[2023-03-30] MEDS: ONDANSETRON 4 MG/2 ML INJ IV (15:51)
[2023-03-30] MEDS: KETOROLAC 30 MG/ML VIAL 15 MG IV (15:52)
== END 2023-03-30 15:54 | disposition home or self-care (01) ==
PROVIDERS: Emergency Provider Emergency Medicine; PCP Pediatrics
DX: R10.11 Right upper quadrant pain (principal)
CPT/HCPCS: 74177; 76705; 80053; 81003; 81015; 82550; 83690; 84484; 85025; 85610; 93005; 93010; 96374; 96375; 99284; J1885; J2405; Q9967

== ENCOUNTER → 2023-09-08 07:58 | Outpatient (CLI) | payer OTHER, SELFPAY ==
--- NOTE | 2023-09-08 08:00 | DI.RAD.S_ITS ---
PROCEDURE: XR KUB INDICATIONS: History of kidney stones TECHNIQUE: One view of the abdomen acquired. COMPARISON: [facility], CT, CT ABDOMEN PELVIS W CON, 03/30/2023, 14:03. [facility], CR, XR KUB, 10/29/2022, 13:12. [facility], CR, XR KUB, 10/03/2022, 12:26. FINDINGS: Surgical changes and devices: None. Bowel: Bowel gas pattern is normal. Soft tissues: Small right kidney stone projecting near the renal pelvis measuring 0.6 cm. No suspicious abdominal calcifications. Visualized solid organ contours appear normal in size. Bones: No suspicious bony lesions. IMPRESSION: Small right kidney stone projecting near the right renal pelvis measuring 0.6 cm. Dictated by: Robert Madera M.D. on 09/08/2023 at 11:59 Approved by: Robert Madera M.D. on 09/08/2023 at 12:01
== END ==
PROVIDERS: PCP Family Medicine; Referring Provider Urology; Visit Provider Urology
DX: N20.0 Calculus of kidney (principal)
CPT/HCPCS: 74018

== ENCOUNTER 2023-11-24 06:15 | Day surgery (SDC) | payer OTHER, SELFPAY ==
[2023-10-15 07:41] VITALS: BMI 43.0
[2023-11-24 06:37] VITALS: BMI 42.0
[2023-11-24 06:43] VITALS: BP 132/85; PULSE 70; RESP 17; TEMP 36.7; O2SAT 96
[2023-11-24] MEDS: LACTATED RINGERS 1,000 ML 21 ML IV (06:55)
--- NOTE | 2023-11-24 07:26 | SUR.OPER ---
Lithotomy on ESWL table, head on pillow, arms secured and padded at sides. Legs secured in padded yellow fins stirrups.
--- NOTE | 2023-11-24 07:41 | PM.PREOP ---
Pre-operative Note COVID-19 COVID-19 status: Not tested Interval Note History & Physical reviewed/Exam performed by Physician: Yes Changes to H&P: No
[2023-11-24] MEDS: CEFAZOLIN 2 GM/100 ML PREMIX 100 ML IV (07:52)
--- NOTE | 2023-11-24 08:44 | PM.OP.1 ---
Procedure & Clinicians Procedure: Right extracorporeal shockwave lithotripsy with cystoscopy and right ureteral stent placement Same procedure as scheduled: Yes Indications: This 48-year-old male with a known history of kidney stones presented to clinic in follow-up of his stones and was found to have a recurrent stone in the right side proximally 7-8 mm. Patient presents at this time for the above procedure to treat his stone. Surgeon: Charlie Arora Click Yes if Unassisted: Yes Anesthesia Type: General Operative Notes Findings: At cystoscopy urethral meatus is normal, urethra is normal along its length with normal mucosa. The sphincter as well coapted the prostate shows minimal to moderate obstructive character. The right left ureteral orifice were in normal position with clear efflux. There were no other abnormalities within the bladder. A stone was noted to be in the mid kidney. And received 2000 shocks at level 7 and appeared to fragment well. A 7 Dominican by multi length stent was left in good position in the right collecting system without a string. There were no other know where the findings present. Closure Type: not applicable Specimen(s): none sent Applied: other (Seven Dominican by multi length ureteral stent in the right collecting system without a string.) Estimated Blood Loss (mL): 0 Blood products transfused: none Procedure in detail: Procedure in detail: After informed consent was obtained, the patient was identified brought to the operating room where he is placed in the supine position on the Lithotripter. Once there anesthesia was induced and maintained. Showing an adequate level of anesthesia the patient was transitioned to the lithotomy position where he was prepped, draped, prepared for Transurethral procedure and extracorporeal shockwave lithotripsy. After ensuring an adequate level of anesthesia, time-out, administration of antibiotics and prepping and draping a 22 Dominican cystoscope was passed through the urethra prostate into the bladder and direct vision where cystoscopy was performed. The right ureteral orifice was identified and under cystoscopic visualization a hybrid guidewire was passed up under the collecting system under fluoroscopic visualization. Stent was then passed over the wire and a coaxial fashion position in the renal pelvis under fluoroscopic visualization and in the bladder under direct vision. The nylon harness was removed the stent was left in good position the bladder was drained the scope was removed and the patient went onto extracorporeal shockwave lithotripsy. The stone was targeted via the imaging system and shockwave delivered up to level 7 with periodic reimaging and Re localization to ensure maximal energy delivery to the stone. At 1999 shockwave the stone appeared well fragmented of the shockwave had was rotated out a fluoroscopy performed the stone appeared well fragmented. At this point the patient was awakened having tolerated the procedure well to be transferred to the postanesthesia care unit for recovery. There were no complications the patient will follow-up from my office in 10-14 days with a KUB. Complications: none Post-operative Condition: stable Disposition: PACU Plan for aftercare: Patient to follow-up in my office in 10-14 days with a KUB. Patient is to strain all urine and save any fragments to bring to follow-up.
[2023-11-24 08:47] VITALS: BP 135/69; PULSE 87; RESP 20; O2SAT 99
[2023-11-24 08:48] VITALS: BP 129/60; PULSE 87; RESP 18; TEMP 36.5; O2SAT 99
[2023-11-24 08:57] VITALS: BP 141/65; PULSE 87; RESP 16; O2SAT 94
[2023-11-24 09:02] VITALS: BP 140/73; PULSE 79; RESP 18; O2SAT 94
[2023-11-24] MEDS: PHENAZOPYRIDINE 100 MG TABLET 200 MG PO (09:03)
[2023-11-24] MEDS: OXYBUTYNIN 5 MG TABLET PO (09:03)
[2023-11-24] MEDS: ACETAMINOPHEN 325 MG TABLET 650 MG PO (09:03)
[2023-11-24 09:07] VITALS: BP 135/76; PULSE 83; RESP 16; TEMP 36.1; O2SAT 98
== END 2023-11-24 09:33 | disposition home or self-care (01) ==
PROVIDERS: PCP Family Medicine; Referring Provider Urology; Visit Provider Urology
PROC: (CPT 50590; principal; 2023-11-24 07:45)
DX: N20.0 Calculus of kidney (principal)
CPT/HCPCS: 50590; 52332; J0330; J0690; J1100; J1170; J2250; J2405; J2704; J3010

== ENCOUNTER → 2023-12-08 09:44 | Outpatient (CLI) | payer OTHER, SELFPAY ==
--- NOTE | 2023-12-08 09:55 | DI.RAD.S_ITS ---
PROCEDURE: XR KUB INDICATIONS: Follow-up lithotripsy TECHNIQUE: One view of the abdomen acquired. COMPARISON: [facility], CR, XR KUB, 09/08/2023, 8:12. [facility], CR, XR KUB, 10/29/2022, 13:12. FINDINGS: Surgical changes and devices: None. Bowel: Bowel gas pattern is normal. Soft tissues: No suspicious abdominal calcifications. Visualized solid organ contours appear normal in size. Right-sided nephroureteral stent in place. Bones: No suspicious bony lesions. IMPRESSION: Right-sided nephroureteral stent in place. No visible stones. Dictated by: Daquan Max M.D. on 12/08/2023 at 12:08 Approved by: Daquan Max M.D. on 12/08/2023 at 12:08
== END ==
PROVIDERS: PCP Family Medicine; Referring Provider Urology; Visit Provider Urology
DX: N20.0 Calculus of kidney (principal)
CPT/HCPCS: 74018; 82365

== ENCOUNTER → 2023-12-23 14:07 | Outpatient (CLI) | payer OTHER, SELFPAY ==
--- NOTE | 2023-12-23 14:08 | DI.RAD.S_ITS ---
PROCEDURE: XR KUB INDICATIONS: kidney stones TECHNIQUE: One view of the abdomen acquired. COMPARISON: [facility], , XR KUB, 12/08/2023, 9:55. FINDINGS: Surgical changes and devices: Right double-J ureteral stent. Bowel: Bowel gas pattern is normal. Soft tissues: No suspicious abdominal calcifications or calcifications in the right flank. Visualized solid organ contours appear normal in size. Bones: No suspicious bony lesions. IMPRESSION: Right double-J ureteral stent. No calcifications in the right flank to suggest nephrolithiasis. If there is high clinical suspicion, consider CT KUB for further evaluation. Dictated by: Anselmo Mckinley M.D. on 12/23/2023 at 16:10 Approved by: Anselmo Mckinley M.D. on 12/23/2023 at 16:12
== END ==
PROVIDERS: PCP Family Medicine; Referring Provider Urology; Visit Provider Urology
DX: N20.0 Calculus of kidney (principal); Z96.0 Presence of urogenital implants
CPT/HCPCS: 74018

== ENCOUNTER → 2024-01-06 11:50 | Outpatient (CLI) | payer OTHER, SELFPAY ==
[2024-01-13 15:09] LABS: Ca oxalate dihydrate 20 % (.); Ca oxalate monohydr 80 % (.); Size 4x2 mm (.)
== END ==
PROVIDERS: PCP Family Medicine; Visit Provider Urology
DX: N20.0 Calculus of kidney (principal)
CPT/HCPCS: 52310; 81002; 82365

== ENCOUNTER 2024-01-20 11:37 | Emergency (ER) | payer OTHER, SELFPAY ==
[2024-01-20 11:40] VITALS: BP 158/78; PULSE 75; RESP 16; TEMP 36.6; O2SAT 99; BMI 41.7
[2024-01-20] MEDS: SODIUM CHLORIDE 0.9% 1,000 ML 1000 ML IV (12:09)
[2024-01-20] MEDS: ONDANSETRON 4 MG/2 ML INJ IV (12:09)
--- NOTE | 2024-01-20 12:12 | ED.GENADULT ---
HPI - General Adult General Chief complaint: Urogenital-Male Stated complaint: kidney and bladder pain, vomiting Time Seen by Provider: 01/20/24 11:44 Source: patient Mode of arrival: Family Vehicle History of Present Illness HPI narrative: 48-year-old male. A couple weeks ago underwent a right-sided lithotripsy with stent placement. He was since had the stent removed. Had a follow-up with his urologist yesterday. Symptoms seem to be improving but then over the past 24 hours after that appointment yesterday started to increasing pain in the right side of his kidney. Describes it as an intense pressure sensation. Also having some dysuria. He does feel like he is emptying his bladder. Is also having vomiting because of the pain. No fevers. No change in bowel habits. Related Data Home Medications Medication Instructions Recorded Confirmed venlafaxine 150 mg tablet,extended 150 mg PO DAILY 10/12/23 01/19/24 release 24 hr Previous Rx's Medication Instructions Recorded atorvastatin 40 mg tablet 40 mg PO DAILY #90 tabs 05/04/20 hydrocodone 5 mg-acetaminophen 325 1 tab PO Q4-6H PRN pain #14 tabs 01/20/24 mg tablet ondansetron 4 mg disintegrating 4 mg PO Q6H PRN nausea and 01/20/24 tablet vomiting #10 tabs tamsulosin 0.4 mg capsule (Flomax) 0.8 mg (2 x 0.4 mg) PO DAILY #28 01/20/24 caps Allergies Allergy/AdvReac Type Severity Reaction Status Date / Time No Known Drug Allergies Allergy Verified 01/19/24 12:55 Review of Systems Review of Systems Narrative: See HPI Patient History Medical History History of phimosis of penis History of balanitis High urine sodium Hypercalciuria Phimosis of penis Calcium oxalate stones Right-sided back pain Right sided abdominal pain Right renal stone Kidney stones Family history of prostate cancer in father Plantar fasciitis Bilateral shoulder pain Impaired vision Sleep apnea Biceps tendonitis on left Left rotator cuff tear Arthritis Surgical History (Updated 12/08/23 @ 09:49 by Charlie Arora MD) History of circumcision (01/06/23) History of urologic surgery (09/23/22) History of shoulder surgery Family History Father Cancer Grandmother Diabetes mellitus Social History marital status: number of children: 3 household members: spouse and children Smoking Status: Former smoker alcohol intake: former Type(s) of exercise: walking frequency: 3-4 times per week Smoking Status: Former smoker alcohol intake frequency: 0-2 drinks per day Substance Use Type: does not use Exam Initial Vital Signs Initial Vital Signs: Vital Signs Temperature 97.8 F 01/20/24 11:40 Pulse Rate 75 01/20/24 11:40 Respiratory Rate 16 01/20/24 11:40 Blood Pressure 158/78 H 01/20/24 11:40 Pulse Oximetry 99 01/20/24 11:40 Oxygen Delivery Method Room Air 01/20/24 11:40 Const General: cooperative, comfortable and No ill appearing HENMT Head: normal to inspection and normocephalic Resp Effort & Inspection: normal respiratory effort Cardio Rate: regular rate GI Inspection: normal to inspection and non-distended Palpation: soft and No tender Back/Spine/Pelvis Back: No CVA tenderness Skin General: no rashes or lesions noted Neuro General: patient alert, patient awake and moves all extremities Course Orders Ordered: ED Orders 01/20/24 12:09 Basic Metabolic Panel Stat Complete Blood Count AUTO DIFF Stat 01/20/24 12:13 CT kidney ureter bladder (KUB) Stat 01/20/24 13:01 Urine Microscopic Stat Discontinued Medications Sodium Chloride (Normal Saline 0.9%) 1,000 mls @ 1,000 mls/hr IV BOLUS ONE Stop: 01/20/24 12:57 Last Infusion: 01/20/24 13:44 Dose: Infused Documented By: Admin: 01/20/24 12:09 Dose: 1,000 mls/hr Documented By: RITA Ketorolac Tromethamine (Ketorolac 30 Mg/Ml Vial) 30 mg IV NOW ONE Stop: 01/20/24 13:27 Last Admin: 01/20/24 13:32 Dose: 30 mg Documented By: RITA Ondansetron HCl (Ondansetron 4 Mg/2 Ml Inj) 4 mg IV NOW ONE Stop: 01/20/24 11:59 Last Admin: 01/20/24 12:09 Dose: 4 mg Documented By: RITA Vital Signs Vital signs: Vital Signs - 8 hr 01/20/24 11:40 01/20/24 13:25 01/20/24 13:26 Temperature 97.8 F Pulse Rate 75 61 Respiratory Rate 16 Blood Pressure 158/78 H Pulse Oximetry 99 98 96 Oxygen Delivery Method Room Air 01/20/24 13:26 01/20/24 13:30 01/20/24 13:30 Temperature Pulse Rate 63 Respiratory Rate 16 Blood Pressure 125/65 126/66 Pulse Oximetry 94 Oxygen Delivery Method Room Air Medical Decision Making Lab Data Lab results reviewed: Yes I reviewed the patient's lab results. 01/20/24 12:09 01/20/24 12:09 Labs: Lab Results 01/20/24 01/20/24 Range/Units 12:09 13:01 WBC 11.6 H (4.5-11.0) X10^3/uL RBC 5.24 (4.5-5.9) X10^6/uL Hgb 15.3 (13.5-17.5) g/dL Hct 45.2 (41-53) % MCV 86.2 (80-100) fL MCH 29.2 (26-34) PG MCHC 33.9 (30-36) % RDW 13.5 (11.6-14.8) % Plt Count 329 (150-400) X10^3/uL Neut % (Auto) 66.2 (50-75) % Lymph % (Auto) 24.3 L (25-40) % Gage % (Auto) 7.2 (3-14) % Eos % (Auto) 1.7 L (2-4) % Baso % (Auto) 0.6 (0-2) % Neut # (Auto) 7700 H (6386-0329) /uL Lymph # (Auto) 2800 (7959-5627) /uL Gage # (Auto) 800 (0-900) /uL Eos # (Auto) 200 (0-450) /uL Baso # (Auto) 100 (0-100) /uL Sodium 138 (137-145) mmol/L Potassium 3.9 (3.4-5.1) mmol/L Chloride 104 (98-107) mmol/L Carbon Dioxide 25 (22-32) mmol/L BUN 11 (9-20) mg/dL Creatinine 0.96 (0.66-1.25) mg/dL Estimated GFR > 60 (>60) mL/min BUN/Creatinine Ratio 11.5 (6-22) Glucose 112 H (70-100) mg/dL Calcium 9.3 (8.4-10.2) mg/dL Urine RBC 1-5/hpf (0-5/HPF) Urine WBC 1-5/hpf (0-5/HPF) Ur Squamous Epith Cells 1-5 /hpf (0-5/HPF) Urine Bacteria Occasional (0-1) (None) Ur Culture Indicated? Cult not indicated Vol Urine Centrifuged 10ml (spun) Urine Dip Bedside Urine Glucose Negative Bedside Urine Bilirubin - Negative Bedside Urine Ketone - Negative Urine Specific Coggon 1.010 Bedside Urine Occult Blood +++ Bedside Urine pH 6.0 Bedside Urine Protein - Negative Bedside Urine Urobilinogen - Negative Bedside Urine Nitrite - Negative Bedside Urine Leukocytes - Negative Esterase Point of care testing: Urine Dip Bedside Urine Glucose Negative Bedside Urine Bilirubin - Negative Bedside Urine Ketone - Negative Urine Specific Coggon 1.010 Bedside Urine Occult Blood +++ Bedside Urine pH 6.0 Bedside Urine Protein - Negative Bedside Urine Urobilinogen - Negative Bedside Urine Nitrite - Negative Bedside Urine Leukocytes - Negative Esterase Imaging Data CT scan - abdomen/pelvis: Radiologist's Impression: PROCEDURE: CT KIDNEY URETER BLADDER (KUB) INDICATIONS: hx of R sided lithotripsy S/P stent removal with pain TECHNIQUE: Axial sections were acquired from the lung bases to the pubic symphysis. Coronal and sagittal reformats were performed. For radiation dose reduction, the following was used: automated exposure control, adjustment of mA and/or kV according to patient size. COMPARISON: [facility], CT, CT KIDNEY URETER BLADDER (KUB), 08/06/2022, 14:13. FINDINGS: Image quality: Diagnostic. Lower Chest: No significant findings. URINARY: Right Kidney: Mild hydronephrosis. Extrarenal pelvis. No renal stone. Right Ureter: Dilated to the level of L3-L4, where a 7 mm stone, which was previously in the renal pelvis, obstructs the ureter. It has a Hounsfield measurement of 714. It results in moderate hydroureter and mild hydronephrosis. Left Kidney: No stones or hydronephrosis. Left Ureter: No hydroureter. Bladder: Normal wall thickness. No stones. ABDOMEN: Liver: No contour-deforming solid mass. Gallbladder: No radiopaque gallstones or wall thickening. Biliary ducts: No biliary dilation. Pancreas: No ductal dilation. Spleen: Size is within normal limits. Adrenal Glands: No adrenal nodules. Stomach and Bowel: Normal colonic caliber, without significant wall thickening. Peritoneum: No abnormal intraperitoneal fluid. No free air. Ventral Wall: No hernia. Abdominal Nodes: No enlarged retroperitoneal or mesenteric lymph nodes. Vessels: Aorta and inferior vena cava are normal in size. PELVIS: Pelvic Organs: Unremarkable. Pelvic Nodes: Unremarkable. Miscellaneous: Small bilateral fat containing inguinal hernias. Bones: Unremarkable. IMPRESSION: A 7 mm right-sided stone now obstructs the right ureter at the level of L3-L4, resulting in moderate right hydroureter and mild right hydronephrosis. MDM Narrative Medical decision making narrative: CT scan does show right-sided 7 mm ureteral stone. No signs of urinary tract infection. Pain is improving. Kidney functions unremarkable. I did discuss the case with Dr. Arora who is the patient's urologist who looked at the CT scan. He measured the stone 5 mm. Recommended Flomax, pain medicine, nausea medicine and the urology office will contact the patient the beginning of next week for a follow-up. Discussed all this with the patient. He was given return precautions and follow-up instructions. He expressed understanding and agreement. Discharge Plan Departure Patient Disposition: Home Clinical Impression: Right ureteral calculus Instructions: DI for Kidney Stones Activity Restrictions/Additional Instructions: You should be receiving a call at the beginning of next week from your urology office. Take the medications as directed. Return to the emergency department for new or worsening symptoms like we discussed. Prescriptions: New tamsulosin [Flomax] 0.4 mg capsule 0.8 mg PO DAILY Qty: 28 0RF ondansetron 4 mg tablet,disintegrating 4 mg PO Q6H PRN (Reason: nausea and vomiting) Qty: 10 0RF hydrocodone-acetaminophen 5-325 mg tablet 1 tab PO Q4-6H PRN (Reason: pain) Qty: 14 0RF No Action atorvastatin 40 mg tablet 40 mg PO DAILY Qty: 90 3RF venlafaxine 150 mg tablet extended release 24hr 150 mg PO DAILY Referrals: Jarred Valles DO [Primary Care Provider] - Charlie Arora MD [Physician] - Stand Alone Forms: Patient Portal/API
[2024-01-20 12:20] LABS: Add Manual Diff / Slide Review NO; Basophils Absolute Auto 100 /uL (0-100); Basophils Percent Auto 0.6 % (0-2); Eosinophils Absolute Auto 200 /uL (0-450); Eosinophils Percent Auto 1.7 % (2-4); Hematocrit 45.2 % (41-53); Hemoglobin 15.3 g/dL (13.5-17.5); Lymphocytes Absolute Auto 2800 /uL (1100-4500); Lymphocytes Percent Auto 24.3 % (25-40); Mean Corpuscular HGB Conc 33.9 % (30-36); Mean Corpuscular Hemoglobin 29.2 PG (26-34); Mean Corpuscular Volume 86.2 fL (80-100); Monocytes Absolute Auto 800 /uL (0-900); Monocytes Percent Auto 7.2 % (3-14); Neutrophils Absolute Auto 7700 /uL (1500-7000); Neutrophils Percent Auto 66.2 % (50-75); Platelet Count 329 X10^3/uL (150-400); Red Blood Cell Count 5.24 X10^6/uL (4.5-5.9); Red Cell Distribution Width 13.5 % (11.6-14.8); White Blood Cell Count 11.6 X10^3/uL (4.5-11.0)
[2024-01-20 12:30] LABS: BUN Creatinine Ratio 11.5 (6-22); Blood Urea Nitrogen 11 mg/dL (9-20); Calcium 9.3 mg/dL (8.4-10.2); Carbon Dioxide 25 mmol/L (22-32); Chloride 104 mmol/L (98-107); Estimated Glomerular Filt Rate > 60 mL/min (>60); Glucose 112 mg/dL (70-100); HEMOLYSIS < 15 (0-50); Potassium 3.9 mmol/L (3.4-5.1); Sodium 138 mmol/L (137-145)
[2024-01-20 13:25] VITALS: O2SAT 98
[2024-01-20 13:26] VITALS: BP 125/65; PULSE 61; O2SAT 96
[2024-01-20 13:28] LABS: Bacteria Urine Occasional (0-1); Culture Indicated Urine Cult Not Indicated; RBC Urine 1-5/HPF (0-5/HPF); Squamous Epithelial Cell Urine 1-5 /HPF (0-5/HPF); Urine Volume 10mL (spun); WBC Urine 1-5/HPF (0-5/HPF)
[2024-01-20 13:30] VITALS: BP 126/66; PULSE 63; RESP 16; O2SAT 94
[2024-01-20] MEDS: KETOROLAC 30 MG/ML VIAL IV (13:32)
== END 2024-01-20 13:45 | disposition home or self-care (01) ==
PROVIDERS: Emergency Provider Emergency Medicine; PCP Family Medicine
DX: N20.1 Calculus of ureter (principal)
CPT/HCPCS: 36415; 74176; 80048; 81003; 81015; 85025; 96374; 96375; 99284; J1885; J2405

== ENCOUNTER → 2024-01-27 10:12 | Outpatient (CLI) | payer OTHER, SELFPAY ==
--- NOTE | 2024-01-27 10:14 | DI.RAD.S_ITS ---
PROCEDURE: XR KUB INDICATIONS: Follow-up kidney stones TECHNIQUE: One view of the abdomen acquired. COMPARISON: [facility], CR, XR KUB, 12/23/2023, 14:17. FINDINGS: The right nephroureteral stent has been removed. No radiopaque renal stones of either kidney. Nonobstructive bowel gas pattern, nonspecific. IMPRESSION: No radiopaque renal stone. Dictated by: Barbara Webster M.D. on 01/27/2024 at 14:01 Approved by: Barbara Webster M.D. on 01/27/2024 at 14:03
== END ==
PROVIDERS: PCP Family Medicine; Referring Provider Urology; Visit Provider Urology
DX: Z09 Encounter for follow-up examination after completed treatment for conditions other than malignant neoplasm (principal); Z87.442 Personal history of urinary calculi; N20.2 Calculus of kidney with calculus of ureter; R82.998 Other abnormal findings in urine; R82.994 Hypercalciuria; Z80.42 Family history of malignant neoplasm of prostate
CPT/HCPCS: 74018; 99213

== ENCOUNTER → 2024-02-12 06:22 | Outpatient (CLI) | payer OTHER, SELFPAY ==
--- NOTE | 2024-02-12 06:23 | DI.RAD.S_ITS ---
PROCEDURE: XR KUB INDICATIONS: Follow-up right ureteral calculus TECHNIQUE: One view of the abdomen acquired. COMPARISON: [facility], CR, XR KUB, 12/23/2023, 14:17. [facility], CT, CT KIDNEY URETER BLADDER (KUB), 01/20/2024, 12:20. [facility], CR, XR KUB, 01/27/2024, 10:33. FINDINGS: Surgical changes and devices: None. Bowel: Bowel gas pattern is normal. Soft tissues: No suspicious abdominal calcifications. Visualized solid organ contours appear normal in size. Bones: No suspicious bony lesions. IMPRESSION: No acute abnormality. Dictated by: Bryn Riddle M.D. on 02/12/2024 at 8:28 Approved by: Bryn Riddle M.D. on 02/12/2024 at 8:32
== END ==
PROVIDERS: PCP Family Medicine; Referring Provider Urology; Visit Provider Urology
DX: N20.1 Calculus of ureter (principal)
CPT/HCPCS: 74018; 81002; 99214

== ENCOUNTER → 2024-05-10 14:20 | Outpatient (CLI) | payer OTHER, SELFPAY ==
--- NOTE | 2024-05-10 14:22 | DI.RAD.S_ITS ---
PROCEDURE: XR KUB INDICATIONS: Kidney stones, asymptomatic micro hematuria TECHNIQUE: One view of the abdomen acquired. COMPARISON: [facility], CR, XR KUB, 02/12/2024, 6:43. [facility], CR, XR KUB, 01/27/2024, 10:33. FINDINGS: Surgical changes and devices: None. Bowel: Bowel gas pattern is normal. Soft tissues: No suspicious abdominal calcifications. Visualized solid organ contours appear normal in size. Bones: No suspicious bony lesions. IMPRESSION: No renal stones visualized. Dictated by: Daquan Max M.D. on 05/10/2024 at 16:54 Approved by: Daquan Max M.D. on 05/10/2024 at 16:54
== END ==
PROVIDERS: PCP Family Medicine; Referring Provider Urology; Visit Provider Urology
DX: R31.21 Asymptomatic microscopic hematuria (principal); N20.0 Calculus of kidney
CPT/HCPCS: 74018

== ENCOUNTER → 2024-06-13 15:40 | Outpatient (CLI) | payer OTHER, SELFPAY ==
--- NOTE | 2024-06-13 15:42 | DI.RAD.S_ITS ---
PROCEDURE: XR CHEST 2V INDICATIONS: cough TECHNIQUE: 2 views of the chest were acquired. COMPARISON: None. FINDINGS: Surgical changes and devices: None. Lungs and pleura: Lungs are clear. No pleural effusions or pneumothorax. Mediastinum: Mediastinal contours are normal. Heart size is normal. Bones and chest wall: No suspicious bony abnormalities. Soft tissues appear unremarkable. IMPRESSION: No acute cardiopulmonary abnormality is seen. Dictated by: Idalmis Brothers M.D. on 06/14/2024 at 8:10 Approved by: Idalmis Brothers M.D. on 06/14/2024 at 8:15
== END ==
LOC: RAD 15:42
PROVIDERS: PCP Family Medicine; Referring Provider Family Medicine; Visit Provider Family Medicine
DX: R05.9 Cough, unspecified (principal)
CPT/HCPCS: 71046

== ENCOUNTER → 2024-11-23 07:28 | Outpatient (CLI) | payer OTHER, SELFPAY ==
--- NOTE | 2024-11-23 07:29 | DI.RAD.S_ITS ---
PROCEDURE: XR KUB INDICATIONS: Calculus of kidney TECHNIQUE: One view of the abdomen acquired. COMPARISON: [facility], CR, XR KUB, 05/10/2024, 13:39. FINDINGS: Surgical changes and devices: None. Bowel: Bowel gas pattern is normal. Soft tissues: No suspicious abdominal calcifications. Visualized solid organ contours appear normal in size. Bones: No suspicious bony lesions. IMPRESSION: No gross renal calcifications are seen. No evidence of bowel obstruction or gross free air. Dictated by: Ned Will M.D. on 11/23/2024 at 9:51 Approved by: Ned Will M.D. on 11/23/2024 at 9:51
== END ==
PROVIDERS: PCP Family Medicine; Referring Provider Urology; Visit Provider Urology
DX: N20.0 Calculus of kidney (principal)
CPT/HCPCS: 74018

== ENCOUNTER → 2025-02-08 13:36 | Outpatient (CLI) | payer OTHER, SELFPAY ==
--- NOTE | 2025-02-08 13:37 | DI.RAD.S_ITS ---
PROCEDURE: XR CHEST 2V INDICATIONS: respiratory symptoms TECHNIQUE: 2 views of the chest were acquired. COMPARISON: [facility], CR, XR CHEST 2V, 06/13/2024, 15:53. FINDINGS: Heart, mediastinum and pulmonary vascular: Heart is normal in size and configuration. Mediastinum is unremarkable. Pulmonary vascular is normal. Lungs: Clear Pleural spaces: Normal-no effusions or pneumothorax. IMPRESSION: Normal chest. Dictated by: Tristin Kee M.D. on 02/09/2025 at 12:44 Approved by: Tristin Kee M.D. on 02/09/2025 at 12:45
== END ==
LOC: RAD 13:37
PROVIDERS: PCP Family Medicine; Referring Provider Family Medicine; Visit Provider Family Medicine
DX: J40 Bronchitis, not specified as acute or chronic (principal)
CPT/HCPCS: 71046

== ENCOUNTER → 2025-05-24 14:28 | Outpatient (CLI) | payer OTHER, SELFPAY ==
--- NOTE | 2025-05-24 14:31 | DI.RAD.S_ITS ---
PROCEDURE: XR KUB
== END ==
PROVIDERS: PCP Family Medicine; Referring Provider Family Medicine; Visit Provider Urology
DX: N20.0 Calculus of kidney (principal); M54.9 Dorsalgia, unspecified; G89.29 Other chronic pain
CPT/HCPCS: 74018